=== PATIENT | male | born 1975 | race African-American/Black ===

== ENCOUNTER 2018-06-21 01:25 | Emergency (ER) | payer OTHER ==
[~2018-06-21] VITALS: Ht 188 cm; Wt 83.5 kg
[2018-06-21 02:22] VITALS: BP 141/73
[2018-06-21] MEDS ORDERED: RISP.5 PO (02:26)
[2018-06-21] MEDS ORDERED: RisperiDONE 0.5 MG TABLET PO ONE (04:00)
== END 2018-06-21 05:55 | disposition home or self-care (01) ==
LOC: EMS 01:25
DX: R45.89 Other symptoms and signs involving emotional state (principal); F17.210 Nicotine dependence, cigarettes, uncomplicated; Z91.013 Allergy to seafood; Z88.0 Allergy status to penicillin
CPT/HCPCS: 99285

== ENCOUNTER 2018-11-27 16:19 | Inpatient (IN) | payer MEDICAID ==
[~2018-11-27] VITALS: Ht 188 cm; Wt 80.7 kg
[~2018-11-27 16:19] MED LIST: RISP.5 PO
[2018-11-27 18:02] VITALS: BP 134/67
[2018-11-27] MEDS ORDERED: LORazepam 2 MG TABLET PO PRN (18:45)
[2018-11-27] MEDS ORDERED: ZOLPIDEM TARTRATE 10 MG TABLET PO PRN (18:45)
[2018-11-27] MEDS ORDERED: HALOPERIDOL 5 MG TABLET PO PRN (18:45)
[2018-11-27 19:15] VITALS: BP 122/71
[2018-11-27] MEDS ORDERED: ACETAMINOPHEN 325 MG TABLET PO PRN (22:15)
[2018-11-27] MEDS ORDERED: CloNIDine HCL 0.1 MG TABLET PO PRN (22:15)
[2018-11-27] MEDS ORDERED: DOCUSATE SODIUM 100 MG CAPSULE PO PRN (22:15)
[2018-11-27] MEDS ORDERED: NICOTINE 14 MG/24 HOUR PATCH TD PRN (22:15)
[2018-11-27] MEDS ORDERED: PETROLATUM,WHITE 71 GM JELLY TP PRN (22:15)
[2018-11-27] MEDS ORDERED: LOPERAMIDE HCL 2 MG CAPSULE PO PRN (22:15)
[2018-11-27] MEDS ORDERED: ONDANSETRON HCL 4 MG TABLET PO PRN (22:15)
[2018-11-27] MEDS ORDERED: ALBUTEROL SULFATE HFA 90 MCG/PUFF 8 GM INHALER IH PRN (22:15)
[2018-11-27] MEDS ORDERED: MAG HYDROX/AL HYDROX/SIMETH ES 30 ML SUSPENSION UDCUP PO PRN (22:15)
[2018-11-27] MEDS ORDERED: GuaiFENesin/D-METHORPHAN [SUGAR-FREE] 200-20MG/10 ML SYRUP UDCUP PO PRN (22:15)
[2018-11-27] MEDS ORDERED: MAGNESIUM HYDROXIDE SUSPENSION 30 ML UDCUP PO PRN (22:15)
[2018-11-27] MEDS ORDERED: IBUPROFEN 400 MG TABLET PO PRN (22:15)
[2018-11-28 06:29] VITALS: BP 122/79
[2018-11-28 07:54] LABS: BASOPHILS % (AUTO) 0.4 % (0.0-2.0); EOSINOPHILS % (AUTO) 1.3 % (1.0-6.0); HEMATOCRIT 45.8 % (41-53); HEMOGLOBIN 15.6 g/dL (13.5-17.5); LYMPHOCYTES # (AUTO) 2.3 K/uL (1.0-4.8); LYMPHOCYTES % (AUTO) 31.1 % (22.0-44.0); MEAN CORPUSCULAR HEMOGLOBIN 31.7 pg (26.0-34.0); MEAN CORPUSCULAR HGB CONC 34.1 G/dL (31.0-37.0); MEAN CORPUSCULAR VOLUME 93 fL (80-100); MONOCYTES # (AUTO) 0.5 K/uL (0.1-1.0); MONOCYTES % (AUTO) 6.5 % (2.0-9.0); NEUTROPHILS # (AUTO) 4.5 K/uL (1.8-7.7); NEUTROPHILS % (AUTO) 60.7 % (40.0-70.0); PLATELET COUNT (AUTO) 211 K/uL (150-450); RED BLOOD CELL COUNT(AUTO) 4.94 MIL/uL (4.50-5.90); RED CELL DISTRIBUTION WIDTH 13.2 % (11.5-14.5)
[2018-11-28 08:07] LABS: APPEARANCE,URINE CLOUDY (CLEAR); BILIRUBIN,URINE NEGATIVE (NEGATIVE); GLUCOSE, URINE (UA) NEGATIVE (NEGATIVE); KETONES,URINE 15 mg/dL (NEGATIVE); LEUKOCYTE ESTERASE ,URINE SMALL (NEGATIVE); NITRATE,URINE NEGATIVE (NEGATIVE); OCCULT BLOOD,URINE NEGATIVE (NEGATIVE); PH,URINE 7.5 (5.0-8.0); PROTEIN,URINE SEE CONFIRM (NEGATIVE)
[2018-11-28 08:08] VITALS: BP 121/77
[2018-11-28 08:18] LABS: SULFOSALICYLIC ACID,URINE 3+ (Negative)
[2018-11-28 08:20] LABS: BACTERIA,URINE Moderate /HPF (None Seen); RBC,URINE 0-2 /HPF (0-2); SQUAMOUS EPITHELIAL CELL,UR Moderate /LPF (None Seen)
[2018-11-28 08:38] LABS: HEMOGLOBIN A1C 6.3 % (4.5-6.2)
[2018-11-28 08:46] LABS: ALANINE AMINOTRANSFERASE 33 U/L (12-78); ALBUMIN 3.7 g/dL (3.4-5.0); ALKALINE PHOSPHATASE 99 U/L (46-116); ANION GAP 6 mmol/L (8-16); ASPARTATE AMINOTRANSFERASE 35 U/L (15-37); BILIRUBIN,TOTAL 0.9 mg/dL (0.1-1.0); CALCIUM, TOTAL 9.2 mg/dL (8.8-10.5); CARBON DIOXIDE 32 mmol/L (22-29); CHLORIDE 103 mmol/L (98-107); CHOLESTEROL 191 mg/dL (131-200); CREATININE 1.06 mg/dL (0.60-1.30); FREE T4 (FREE THYROXINE) 1.03 ng/dL (0.76-1.46); GLOMERULAR FILTR. RATE CALC > 60 mL/min (>60); GLUCOSE,RANDOM 82 mg/dL (70-110); HDL CHOLESTEROL 64 mg/dL (40-60); LDL CHOL (CALC.) 119 mg/dL (0-130); POTASSIUM 4.4 mmol/L (3.5-5.1); SODIUM SERUM 141 mmol/L (136-145); THYROID STIMULATING HORMONE 0.21 uIU/mL (0.36-3.74); TOTAL PROTEIN, SERUM 7.3 g/dL (6.4-8.2); TRIGLYCERIDES 39 mg/dL (15-150); UREA NITROGEN, BLOOD 20 mg/dL (7-18)
[2018-11-28 16:07] VITALS: BP 135/84
[2018-11-28] MEDS: CIPROFLOXACIN HCL 250 MG TABLET PO SCH (21:00)
[2018-11-29 06:35] VITALS: BP 126/68
[2018-11-29] MEDS: CIPROFLOXACIN HCL 250 MG TABLET PO SCH ×2 (08:57→20:23)
[2018-11-29] MEDS: BuPROPion HCL XL 150 MG ER TABLET PO SCH (08:57)
[2018-11-29 09:16] VITALS: BP 115/64
[2018-11-29 17:56] VITALS: BP 118/75
[2018-11-30 06:32] VITALS: BP 124/77
[2018-11-30 08:39] VITALS: BP 122/74
[2018-11-30] MEDS: CIPROFLOXACIN HCL 250 MG TABLET PO SCH (08:44)
[2018-11-30] MEDS: BuPROPion HCL XL 150 MG ER TABLET PO SCH (08:44)
[2018-11-30] MEDS ORDERED: CIP250 PO (15:14)
[2018-11-30] MEDS ORDERED: BUPR-93 PO (15:14)
== END 2018-11-30 18:37 | disposition home or self-care (01) | DRG 751 ==
LOC: B3A 18:41
PROVIDERS: ADMIT Psychiatry & Neurology Psychiatry; ATTEND Psychiatry & Neurology Psychiatry
DX: F33.2 Major depressive disorder, recurrent severe without psychotic features (principal); F20.9 Schizophrenia, unspecified; R45.851 Suicidal ideations; Z91.19 Patient's noncompliance with other medical treatment and regimen; B18.2 Chronic viral hepatitis C; F10.10 Alcohol abuse, uncomplicated; Y90.9 Presence of alcohol in blood, level not specified; F14.90 Cocaine use, unspecified, uncomplicated; F15.90 Other stimulant use, unspecified, uncomplicated; F17.200 Nicotine dependence, unspecified, uncomplicated; N18.9 Chronic kidney disease, unspecified; N39.0 Urinary tract infection, site not specified; Z91.5 Personal history of self-harm; Z88.0 Allergy status to penicillin; Z91.013 Allergy to seafood
CPT/HCPCS: 83036; 84439; 84443; 87086

== ENCOUNTER 2019-01-02 14:14 | Emergency (ER) | payer MEDICAID, OTHER ==
[~2019-01-02] VITALS: Ht 185.4 cm; Wt 84.1 kg
[~2019-01-02 14:14] MED LIST changes: +BUPR-93 PO; +CIP250 PO; -RISP.5 PO
[2019-01-02 15:39] LABS: GLUCOSE,POINT OF CARE 93 MG/DL (70-110)
[2019-01-02 18:24] LABS: AMPHET/METH SCREEN,URINE NEGATIVE (NEGATIVE); BARBITURATE SCREEN, URINE NEGATIVE (NEGATIVE); BENZODIAZEPINES SCREEN,URINE NEGATIVE (NEGATIVE); CANNABINOID SCREEN,URINE NEGATIVE (NEGATIVE); COCAINE SCREEN,URINE NEGATIVE (NEGATIVE); METHADONE SCREEN, URINE NEGATIVE (NEGATIVE); OPIATE SCREEN,URINE NEGATIVE (NEGATIVE); PHENCYCLIDINE SCREEN,URINE NEGATIVE (NEGATIVE)
[2019-01-02 19:08] VITALS: BP 127/77
== END 2019-01-02 19:21 | disposition home or self-care (01) ==
LOC: EMS 14:14
DX: F32.9 Major depressive disorder, single episode, unspecified (principal); F41.9 Anxiety disorder, unspecified; F17.210 Nicotine dependence, cigarettes, uncomplicated; Z87.898 Personal history of other specified conditions; Z88.0 Allergy status to penicillin; Z91.013 Allergy to seafood; Z79.899 Other long term (current) drug therapy

== ENCOUNTER 2019-01-12 00:33 | Emergency (ER) | payer OTHER ==
[~2019-01-12] VITALS: Ht 188 cm; Wt 84.1 kg
[2019-01-12] MEDS ORDERED: MAGNESIUM CITRATE 300 ML ORAL SOLUTION PO ONE (01:15)
[2019-01-12 01:37] LABS: BASOPHILS % (AUTO) 0.8 % (0.0-2.0); EOSINOPHILS % (AUTO) 1.4 % (1.0-6.0); HEMATOCRIT 38.7 % (41-53); HEMOGLOBIN 13.5 g/dL (13.5-17.5); LYMPHOCYTES # (AUTO) 2.8 K/uL (1.0-4.8); LYMPHOCYTES % (AUTO) 33.8 % (22.0-44.0); MEAN CORPUSCULAR HEMOGLOBIN 31.2 pg (26.0-34.0); MEAN CORPUSCULAR HGB CONC 34.8 G/dL (31.0-37.0); MEAN CORPUSCULAR VOLUME 90 fL (80-100); MONOCYTES # (AUTO) 0.5 K/uL (0.1-1.0); MONOCYTES % (AUTO) 6.4 % (2.0-9.0); NEUTROPHILS # (AUTO) 4.7 K/uL (1.8-7.7); NEUTROPHILS % (AUTO) 57.6 % (40.0-70.0); PLATELET COUNT (AUTO) 162 K/uL (150-450); RED BLOOD CELL COUNT(AUTO) 4.32 MIL/uL (4.50-5.90); RED CELL DISTRIBUTION WIDTH 13.4 % (11.5-14.5)
[2019-01-12 01:52] LABS: ANION GAP 6 mmol/L (8-16); CALCIUM, TOTAL 9.1 mg/dL (8.8-10.5); CARBON DIOXIDE 32 mmol/L (22-29); CHLORIDE 101 mmol/L (98-107); GLOMERULAR FILTR. RATE CALC > 60 mL/min (>60); GLUCOSE,RANDOM 104 mg/dL (70-110); POTASSIUM 3.4 mmol/L (3.5-5.1); SODIUM SERUM 139 mmol/L (136-145); UREA NITROGEN, BLOOD 21 mg/dL (7-18)
[2019-01-12 01:57] LABS: ALANINE AMINOTRANSFERASE 31 U/L (12-78); ALBUMIN 3.6 g/dL (3.4-5.0); ALKALINE PHOSPHATASE 87 U/L (46-116); ASPARTATE AMINOTRANSFERASE 43 U/L (15-37); BILIRUBIN,TOTAL 0.6 mg/dL (0.1-1.0); LIPASE 74 U/L (73-393); TOTAL PROTEIN, SERUM 7.3 g/dL (6.4-8.2)
[2019-01-12 02:10] VITALS: BP 135/81
== END 2019-01-12 02:30 | disposition home or self-care (01) ==
LOC: EMS 00:35
DX: K59.00 Constipation, unspecified (principal); R07.9 Chest pain, unspecified; F17.210 Nicotine dependence, cigarettes, uncomplicated; F15.90 Other stimulant use, unspecified, uncomplicated; Z88.0 Allergy status to penicillin; Z91.013 Allergy to seafood
CPT/HCPCS: 93005

== ENCOUNTER 2019-01-16 12:14 | Inpatient (IN) | payer MEDICAID, OTHER ==
[~2019-01-16] VITALS: Ht 188 cm; Wt 89.8 kg
[2019-01-16] MEDS ORDERED: HALOPERIDOL 5 MG TABLET PO PRN (15:15)
[2019-01-16] MEDS ORDERED: ZOLPIDEM TARTRATE 10 MG TABLET PO PRN (15:15)
[2019-01-16 16:43] VITALS: BP 136/79
[2019-01-16] MEDS ORDERED: GuaiFENesin/D-METHORPHAN [SUGAR-FREE] 200-20MG/10 ML SYRUP UDCUP PO PRN (18:15)
[2019-01-16] MEDS ORDERED: MAG HYDROX/AL HYDROX/SIMETH ES 30 ML SUSPENSION UDCUP PO PRN (18:15)
[2019-01-16] MEDS ORDERED: DOCUSATE SODIUM 100 MG CAPSULE PO PRN (18:15)
[2019-01-16] MEDS ORDERED: MAGNESIUM HYDROXIDE SUSPENSION 30 ML UDCUP PO PRN (18:15)
[2019-01-16] MEDS ORDERED: ACETAMINOPHEN 325 MG TABLET PO PRN (18:15)
[2019-01-16] MEDS ORDERED: ONDANSETRON HCL 4 MG TABLET PO PRN (18:15)
[2019-01-16] MEDS ORDERED: ALBUTEROL SULFATE HFA 90 MCG/PUFF 8 GM INHALER IH PRN (18:15)
[2019-01-16] MEDS ORDERED: LOPERAMIDE HCL 2 MG CAPSULE PO PRN (18:15)
[2019-01-16] MEDS ORDERED: IBUPROFEN 400 MG TABLET PO PRN (18:15)
[2019-01-16] MEDS ORDERED: CloNIDine HCL 0.1 MG TABLET PO PRN (18:15)
[2019-01-16] MEDS ORDERED: PETROLATUM,WHITE 71 GM JELLY TP PRN (18:15)
[2019-01-16] MEDS ORDERED: NICOTINE 14 MG/24 HOUR PATCH TD PRN (18:15)
[2019-01-17 00:33] VITALS: BP 118/72
[2019-01-17 08:14] VITALS: BP 105/67
[2019-01-17 08:33] LABS: BASOPHILS % (AUTO) 0.7 % (0.0-2.0); EOSINOPHILS % (AUTO) 2.1 % (1.0-6.0); HEMOGLOBIN 13.8 g/dL (13.5-17.5); LYMPHOCYTES % (AUTO) 48.3 % (22.0-44.0); MEAN CORPUSCULAR HEMOGLOBIN 31.7 pg (26.0-34.0); MEAN CORPUSCULAR HGB CONC 34.5 G/dL (31.0-37.0); MEAN CORPUSCULAR VOLUME 92 fL (80-100); MONOCYTES # (AUTO) 0.4 K/uL (0.1-1.0); MONOCYTES % (AUTO) 6.8 % (2.0-9.0); NEUTROPHILS # (AUTO) 2.6 K/uL (1.8-7.7); NEUTROPHILS % (AUTO) 42.1 % (40.0-70.0); PLATELET COUNT (AUTO) 178 K/uL (150-450); RED BLOOD CELL COUNT(AUTO) 4.35 MIL/uL (4.50-5.90); RED CELL DISTRIBUTION WIDTH 13.6 % (11.5-14.5)
[2019-01-17 08:46] LABS: HEMOGLOBIN A1C 5.9 % (4.5-6.2)
[2019-01-17 09:03] LABS: ALANINE AMINOTRANSFERASE 34 U/L (12-78); ALBUMIN 3.2 g/dL (3.4-5.0); ALKALINE PHOSPHATASE 80 U/L (46-116); ANION GAP 3 mmol/L (8-16); ASPARTATE AMINOTRANSFERASE 35 U/L (15-37); BILIRUBIN,TOTAL 0.4 mg/dL (0.1-1.0); CALCIUM, TOTAL 9.1 mg/dL (8.8-10.5); CARBON DIOXIDE 33 mmol/L (22-29); CHLORIDE 102 mmol/L (98-107); CHOLESTEROL 142 mg/dL (131-200); FREE T4 (FREE THYROXINE) 0.75 ng/dL (0.76-1.46); GLOMERULAR FILTR. RATE CALC > 60 mL/min (>60); GLUCOSE,RANDOM 85 mg/dL (70-110); HDL CHOLESTEROL 47 mg/dL (40-60); LDL CHOL (CALC.) 78 mg/dL (0-130); POTASSIUM 4.2 mmol/L (3.5-5.1); SODIUM SERUM 138 mmol/L (136-145); THYROID STIMULATING HORMONE 0.51 uIU/mL (0.36-3.74); TOTAL PROTEIN, SERUM 7.2 g/dL (6.4-8.2); TRIGLYCERIDES 84 mg/dL (15-150)
[2019-01-17 09:09] LABS: UREA NITROGEN, BLOOD 20 mg/dL (7-18)
[2019-01-17 16:16] VITALS: BP 119/73
[2019-01-18 00:34] VITALS: BP 112/68
[2019-01-18 08:25] VITALS: BP 116/65
[2019-01-18] MEDS: BuPROPion HCL XL 150 MG ER TABLET PO SCH (08:57)
[2019-01-18 16:57] VITALS: BP 120/57
[2019-01-19 01:03] VITALS: BP 121/72
[2019-01-19 08:32] VITALS: BP 117/82
[2019-01-19] MEDS: BuPROPion HCL XL 150 MG ER TABLET PO SCH (08:48)
[2019-01-19 16:27] VITALS: BP 110/70
[2019-01-20 04:31] VITALS: BP 115/76
[2019-01-20] MEDS: BuPROPion HCL XL 150 MG ER TABLET PO SCH (08:25)
[2019-01-20 08:27] VITALS: BP 117/85
[2019-01-20 16:02] VITALS: BP 113/67
[2019-01-21 00:47] VITALS: BP 110/68
[2019-01-21] MEDS: LORazepam 2 MG TABLET PO PRN ×2 (00:47→20:30)
[2019-01-21 08:13] VITALS: BP 115/75
[2019-01-21] MEDS: BuPROPion HCL XL 150 MG ER TABLET PO SCH (09:28)
[2019-01-21 16:11] VITALS: BP 119/75
[2019-01-21] MEDS ORDERED: BUPR-93 PO (20:18)
[2019-01-22 01:20] VITALS: BP 103/64
[2019-01-22 08:32] VITALS: BP 114/76
[2019-01-22] MEDS: BuPROPion HCL XL 150 MG ER TABLET PO SCH (09:24)
== END 2019-01-22 09:55 | disposition home or self-care (01) | DRG 751 ==
LOC: B2S 15:14
PROVIDERS: ADMIT Psychiatry & Neurology Psychiatry; ATTEND Psychiatry & Neurology Psychiatry
DX: F33.2 Major depressive disorder, recurrent severe without psychotic features (principal); R45.851 Suicidal ideations; F25.9 Schizoaffective disorder, unspecified; B18.2 Chronic viral hepatitis C; F17.200 Nicotine dependence, unspecified, uncomplicated; E03.9 Hypothyroidism, unspecified; F14.90 Cocaine use, unspecified, uncomplicated; F15.90 Other stimulant use, unspecified, uncomplicated; Z91.19 Patient's noncompliance with other medical treatment and regimen; Z88.0 Allergy status to penicillin; Z91.5 Personal history of self-harm
CPT/HCPCS: 83036; 84439; 84443

== ENCOUNTER 2019-05-01 18:25 | Emergency (ER) | payer MEDICAID, OTHER ==
[~2019-05-01] VITALS: Ht 188 cm; Wt 86.4 kg
[~2019-05-01 18:25] MED LIST changes: -CIP250 PO
[2019-05-01] MEDS ORDERED: ACETAMINOPHEN 500 MG TABLET PO ONE (19:30)
[2019-05-01 22:00] VITALS: BP 139/84
== END 2019-05-01 22:19 | disposition home or self-care (01) ==
LOC: EMS 18:26
DX: R76.11 Nonspecific reaction to tuberculin skin test without active tuberculosis (principal); F12.90 Cannabis use, unspecified, uncomplicated; F15.90 Other stimulant use, unspecified, uncomplicated; F17.210 Nicotine dependence, cigarettes, uncomplicated; Z88.0 Allergy status to penicillin; Z91.013 Allergy to seafood; Z91.018 Allergy to other foods
CPT/HCPCS: 99406

== ENCOUNTER 2019-05-17 16:27 | Inpatient (IN) | payer MEDICAID, OTHER ==
[~2019-05-17] VITALS: Ht 182.9 cm; Wt 85.3 kg
[2019-05-17] MEDS ORDERED: FLUO-191 PO (16:39)
[2019-05-17] MEDS ORDERED: HALOPERIDOL 5 MG TABLET PO PRN (16:45)
[2019-05-17] MEDS ORDERED: PETROLATUM,WHITE 28 GM JELLY TP PRN (17:30)
[2019-05-17] MEDS ORDERED: NICOTINE 14 MG/24 HOUR PATCH TD PRN (17:30)
[2019-05-17] MEDS ORDERED: IBUPROFEN 400 MG TABLET PO PRN (17:30)
[2019-05-17] MEDS ORDERED: DOCUSATE SODIUM 100 MG CAPSULE PO PRN (17:30)
[2019-05-17] MEDS ORDERED: ACETAMINOPHEN 325 MG TABLET PO PRN (17:30)
[2019-05-17] MEDS ORDERED: LOPERAMIDE HCL 2 MG CAPSULE PO PRN (17:30)
[2019-05-17] MEDS ORDERED: MAG HYDROX/AL HYDROX/SIMETH ES 30 ML SUSPENSION UDCUP PO PRN (17:30)
[2019-05-17 17:32] VITALS: BP 133/88
[2019-05-17 21:10] VITALS: BP 128/84
[2019-05-17] MEDS: ZOLPIDEM TARTRATE 10 MG TABLET PO PRN (22:13)
[2019-05-18 00:50] VITALS: BP 122/73
[2019-05-18 07:30] LABS: BASOPHILS % (AUTO) 0.5 % (0.0-2.0); EOSINOPHILS % (AUTO) 1.8 % (1.0-6.0); HEMATOCRIT 39.8 % (41-53); HEMOGLOBIN 13.5 g/dL (13.5-17.5); LYMPHOCYTES # (AUTO) 2.6 K/uL (1.0-4.8); LYMPHOCYTES % (AUTO) 28.9 % (22.0-44.0); MEAN CORPUSCULAR HEMOGLOBIN 31.1 pg (26.0-34.0); MEAN CORPUSCULAR HGB CONC 33.9 G/dL (31.0-37.0); MEAN CORPUSCULAR VOLUME 92 fL (80-100); MONOCYTES # (AUTO) 0.5 K/uL (0.1-1.0); MONOCYTES % (AUTO) 5.6 % (2.0-9.0); NEUTROPHILS # (AUTO) 5.7 K/uL (1.8-7.7); NEUTROPHILS % (AUTO) 63.2 % (40.0-70.0); PLATELET COUNT (AUTO) 255 K/uL (150-450); RED BLOOD CELL COUNT(AUTO) 4.34 MIL/uL (4.50-5.90); RED CELL DISTRIBUTION WIDTH 12.9 % (11.5-14.5)
[2019-05-18 07:38] LABS: HEMOGLOBIN A1C 6.3 % (4.5-6.2)
[2019-05-18 07:55] LABS: ALANINE AMINOTRANSFERASE 36 U/L (12-78); ALBUMIN 3.4 g/dL (3.4-5.0); ALKALINE PHOSPHATASE 94 U/L (46-116); ANION GAP 4 mmol/L (8-16); ASPARTATE AMINOTRANSFERASE 58 U/L (15-37); BILIRUBIN,TOTAL 0.3 mg/dL (0.1-1.0); CALCIUM, TOTAL 9.4 mg/dL (8.8-10.5); CARBON DIOXIDE 32 mmol/L (22-29); CHLORIDE 103 mmol/L (98-107); CHOL/HDL RATIO 3.1 (4.2-7.3); CHOLESTEROL 153 mg/dL (131-200); CREATININE 1.17 mg/dL (0.60-1.30); FREE T4 (FREE THYROXINE) 0.99 ng/dL (0.76-1.46); GLOMERULAR FILTR. RATE CALC > 60 mL/min (>60); GLUCOSE,RANDOM 75 mg/dL (70-110); HDL CHOLESTEROL 50 mg/dL (40-60); LDL CHOL (CALC.) 95 mg/dL (0-130); POTASSIUM 3.9 mmol/L (3.5-5.1); SODIUM SERUM 139 mmol/L (136-145); THYROID STIMULATING HORMONE 0.86 uIU/mL (0.36-3.74); TOTAL PROTEIN, SERUM 7.3 g/dL (6.4-8.2); TRIGLYCERIDES 38 mg/dL (15-150); UREA NITROGEN, BLOOD 14 mg/dL (7-18)
[2019-05-18] MEDS: FLUoxetine HCL 20 MG CAPSULE PO SCH (10:12)
[2019-05-18 16:21] VITALS: BP 115/65
[2019-05-18] MEDS: LORazepam 2 MG TABLET PO PRN (18:55)
[2019-05-18] MEDS: ZOLPIDEM TARTRATE 10 MG TABLET PO PRN (20:18)
[2019-05-18] MEDS: RisperiDONE 1 MG TABLET PO SCH (20:18)
[2019-05-19 00:48] VITALS: BP 120/69
[2019-05-19 08:32] VITALS: BP 120/90
[2019-05-19] MEDS: FLUoxetine HCL 20 MG CAPSULE PO SCH (08:49)
[2019-05-19 16:12] VITALS: BP 130/78
[2019-05-19] MEDS: RisperiDONE 1 MG TABLET PO SCH (21:14)
[2019-05-19] MEDS: ZOLPIDEM TARTRATE 10 MG TABLET PO PRN (21:14)
[2019-05-20 00:58] VITALS: BP 110/67
[2019-05-20 08:36] VITALS: BP 124/64
[2019-05-20] MEDS: FLUoxetine HCL 20 MG CAPSULE PO SCH (08:42)
[2019-05-20 16:00] VITALS: BP 133/76
[2019-05-20] MEDS: RisperiDONE 1 MG TABLET PO SCH (20:18)
[2019-05-20] MEDS: ZOLPIDEM TARTRATE 10 MG TABLET PO PRN (20:21)
[2019-05-21 01:01] VITALS: BP 101/53
[2019-05-21 08:09] VITALS: BP 110/69
[2019-05-21] MEDS: FLUoxetine HCL 20 MG CAPSULE PO SCH (08:09)
[2019-05-21] MEDS ORDERED: PETROLATUM,WHITE 28 GM JELLY TP PRN (12:45)
[2019-05-21] MEDS ORDERED: MAGNESIUM HYDROXIDE SUSPENSION 30 ML UDCUP PO PRN (12:45)
[2019-05-21] MEDS ORDERED: ONDANSETRON HCL 4 MG TABLET PO PRN (12:45)
[2019-05-21] MEDS ORDERED: CloNIDine HCL 0.1 MG TABLET PO PRN (12:45)
[2019-05-21] MEDS ORDERED: DOCUSATE SODIUM 100 MG CAPSULE PO PRN (12:45)
[2019-05-21] MEDS ORDERED: IBUPROFEN 400 MG TABLET PO PRN (12:45)
[2019-05-21] MEDS ORDERED: ACETAMINOPHEN 325 MG TABLET PO PRN (12:45)
[2019-05-21] MEDS ORDERED: ALBUTEROL SULFATE HFA 90 MCG/PUFF 8 GM INHALER IH PRN (12:45)
[2019-05-21] MEDS ORDERED: NICOTINE 14 MG/24 HOUR PATCH TD PRN (12:45)
[2019-05-21] MEDS ORDERED: GuaiFENesin/D-METHORPHAN [SUGAR-FREE] 200-20MG/10 ML SYRUP UDCUP PO PRN (12:45)
[2019-05-21] MEDS ORDERED: LOPERAMIDE HCL 2 MG CAPSULE PO PRN (12:45)
[2019-05-21] MEDS ORDERED: MAG HYDROX/AL HYDROX/SIMETH ES 30 ML SUSPENSION UDCUP PO PRN (12:45)
[2019-05-21 16:27] VITALS: BP 125/78
[2019-05-21] MEDS: LORazepam 2 MG TABLET PO PRN (18:45)
[2019-05-21] MEDS: RisperiDONE 1 MG TABLET PO SCH (20:43)
[2019-05-21] MEDS: ZOLPIDEM TARTRATE 10 MG TABLET PO PRN (20:44)
[2019-05-22 00:13] VITALS: BP 107/63
[2019-05-22] MEDS: FLUoxetine HCL 20 MG CAPSULE PO SCH (08:12)
[2019-05-22 08:38] VITALS: BP 115/62
[2019-05-22 16:22] VITALS: BP 122/66
[2019-05-22] MEDS: RisperiDONE 1 MG TABLET PO SCH (20:25)
[2019-05-22] MEDS: ZOLPIDEM TARTRATE 10 MG TABLET PO PRN (20:25)
[2019-05-23 00:48] VITALS: BP 122/61
[2019-05-23 08:14] VITALS: BP 128/70
[2019-05-23] MEDS: FLUoxetine HCL 20 MG CAPSULE PO SCH (08:26)
[2019-05-23 16:26] VITALS: BP 123/84
[2019-05-23] MEDS: LORazepam 2 MG TABLET PO PRN (17:28)
[2019-05-23] MEDS: RisperiDONE 1 MG TABLET PO SCH (20:24)
[2019-05-23] MEDS: ZOLPIDEM TARTRATE 10 MG TABLET PO PRN (21:04)
[2019-05-24 00:21] VITALS: BP 107/62
[2019-05-24 08:12] VITALS: BP 130/61
[2019-05-24] MEDS: FLUoxetine HCL 20 MG CAPSULE PO SCH (08:31)
[2019-05-24] MEDS: LORazepam 2 MG TABLET PO PRN (11:58)
[2019-05-24 16:07] VITALS: BP 113/75
[2019-05-24] MEDS: RisperiDONE 1 MG TABLET PO SCH (20:10)
[2019-05-24] MEDS: ZOLPIDEM TARTRATE 10 MG TABLET PO PRN (21:04)
[2019-05-25] MEDS: LORazepam 2 MG TABLET PO PRN (03:23)
[2019-05-25] MEDS ORDERED: RISP1 PO (07:59)
== END 2019-05-25 09:00 | disposition home or self-care (01) | DRG 750 ==
LOC: B2S 16:47
DX: F25.1 Schizoaffective disorder, depressive type (principal); F15.20 Other stimulant dependence, uncomplicated; R45.851 Suicidal ideations; E11.9 Type 2 diabetes mellitus without complications; B18.2 Chronic viral hepatitis C; F10.10 Alcohol abuse, uncomplicated; F17.200 Nicotine dependence, unspecified, uncomplicated; R76.11 Nonspecific reaction to tuberculin skin test without active tuberculosis; Z59.0 Homelessness; Z79.899 Other long term (current) drug therapy; Z91.5 Personal history of self-harm; Z71.41 Alcohol abuse counseling and surveillance of alcoholic; Z71.6 Tobacco abuse counseling; Z91.013 Allergy to seafood; Z91.018 Allergy to other foods
CPT/HCPCS: 83036; 84439; 84443

== ENCOUNTER 2019-10-21 19:32 | Inpatient (IN) | payer MEDICAID, OTHER ==
[~2019-10-21] VITALS: Ht 188 cm; Wt 86.2 kg
[~2019-10-21 19:32] MED LIST changes: -BUPR-93 PO; +FLUO-191 PO; +RISP1 PO
[2019-10-21 21:41] LABS: BASOPHILS % (AUTO) 0.6 % (0.0-2.0); EOSINOPHILS % (AUTO) 0.3 % (1.0-6.0); HEMATOCRIT 45.4 % (41-53); HEMOGLOBIN 15.5 g/dL (13.5-17.5); LYMPHOCYTES # (AUTO) 2.2 K/uL (1.0-4.8); LYMPHOCYTES % (AUTO) 19.3 % (22.0-44.0); MEAN CORPUSCULAR HEMOGLOBIN 31.7 pg (26.0-34.0); MEAN CORPUSCULAR HGB CONC 34.2 G/dL (31.0-37.0); MEAN CORPUSCULAR VOLUME 93 fL (80-100); MONOCYTES # (AUTO) 0.7 K/uL (0.1-1.0); MONOCYTES % (AUTO) 6.2 % (2.0-9.0); NEUTROPHILS # (AUTO) 8.3 K/uL (1.8-7.7); NEUTROPHILS % (AUTO) 73.6 % (40.0-70.0); PLATELET COUNT (AUTO) 226 K/uL (150-450); RED CELL DISTRIBUTION WIDTH 13.6 % (11.5-14.5)
[2019-10-21 21:51] LABS: ANION GAP 7 mmol/L (8-16); CALCIUM, TOTAL 9.7 mg/dL (8.8-10.5); CARBON DIOXIDE 32 mmol/L (22-29); CHLORIDE 99 mmol/L (98-107); CREATININE 1.32 mg/dL (0.60-1.30); GLOMERULAR FILTR. RATE CALC > 60 mL/min (>60); GLUCOSE,RANDOM 100 mg/dL (70-110); POTASSIUM 3.9 mmol/L (3.5-5.1); SODIUM SERUM 138 mmol/L (136-145); UREA NITROGEN, BLOOD 11 mg/dL (7-18)
[2019-10-21 21:58] LABS: ALANINE AMINOTRANSFERASE 21 U/L (12-78); ALBUMIN 4.2 g/dL (3.4-5.0); ALKALINE PHOSPHATASE 119 U/L (46-116); ASPARTATE AMINOTRANSFERASE 23 U/L (15-37); BILIRUBIN,TOTAL 0.5 mg/dL (0.1-1.0); TOTAL PROTEIN, SERUM 8.8 g/dL (6.4-8.2)
[2019-10-22 00:43] LABS: CREATINE KINASE, TOTAL ONLY 206 U/L (39-308)
[2019-10-22 01:28] LABS: AMPHET/METH SCREEN,URINE POSITIVE (NEGATIVE); BARBITURATE SCREEN, URINE NEGATIVE (NEGATIVE); BENZODIAZEPINES SCREEN,URINE NEGATIVE (NEGATIVE); CANNABINOID SCREEN,URINE NEGATIVE (NEGATIVE); COCAINE SCREEN,URINE NEGATIVE (NEGATIVE); METHADONE SCREEN, URINE NEGATIVE (NEGATIVE); OPIATE SCREEN,URINE NEGATIVE (NEGATIVE)
[2019-10-22 01:29] LABS: PHENCYCLIDINE SCREEN,URINE NEGATIVE (NEGATIVE)
[2019-10-22] MEDS ORDERED: LORazepam 2 MG TABLET PO PRN (03:15)
[2019-10-22] MEDS ORDERED: DiphenhydrAMINE HCL 50 MG/ML VIAL IM ONE (03:15)
[2019-10-22] MEDS ORDERED: HALOPERIDOL LACTATE 5 MG/ML VIAL IM ONE (03:15)
[2019-10-22] MEDS ORDERED: LORazepam 2 MG/ML VIAL IM ONE (03:15)
[2019-10-22] MEDS ORDERED: HALOPERIDOL 5 MG TABLET PO PRN (03:15)
[2019-10-22] MEDS ORDERED: BACITRACIN 0.9 GM PACKET OINTMENT TP ONE (05:16)
[2019-10-22 09:30] VITALS: BP 100/61
[2019-10-22] MEDS ORDERED: PNEUMOCOCCAL VACCINE POLYVALENT 0.5 ML VIAL [PPSV23] IM ONE (11:15)
[2019-10-22] MEDS ORDERED: ONDANSETRON HCL 4 MG TABLET PO PRN (12:45)
[2019-10-22] MEDS ORDERED: ALBUTEROL SULFATE HFA 90 MCG/PUFF 8 GM INHALER IH PRN (12:45)
[2019-10-22] MEDS ORDERED: PETROLATUM,WHITE 28 GM JELLY TP PRN (12:45)
[2019-10-22] MEDS ORDERED: BACITRACIN 28.4 GM OINTMENT TP PRN (12:45)
[2019-10-22] MEDS ORDERED: CloNIDine HCL 0.1 MG TABLET PO PRN (12:45)
[2019-10-22] MEDS ORDERED: MAGNESIUM HYDROXIDE SUSPENSION 30 ML UDCUP PO PRN (12:45)
[2019-10-22] MEDS ORDERED: MAG HYDROX/AL HYDROX/SIMETH ES 30 ML SUSPENSION UDCUP PO PRN (12:45)
[2019-10-22] MEDS ORDERED: LOPERAMIDE HCL 2 MG CAPSULE PO PRN (12:45)
[2019-10-22] MEDS ORDERED: BENZOCAINE/MENTHOL LOZENGE MM PRN (12:45)
[2019-10-22] MEDS ORDERED: ACETAMINOPHEN 325 MG TABLET PO PRN (12:45)
[2019-10-22 17:12] VITALS: BP 111/66
[2019-10-22] MEDS: BACITRACIN 28.4 GM OINTMENT TP SCH (20:14)
[2019-10-22] MEDS: RisperiDONE 2 MG TABLET PO SCH (21:00)
[2019-10-22] MEDS: DIVALPROEX SODIUM 500 MG DR TABLET PO SCH (21:00)
[2019-10-23 07:03] VITALS: BP 112/58
[2019-10-23 07:52] LABS: BASOPHILS % (AUTO) 0.3 % (0.0-2.0); EOSINOPHILS % (AUTO) 0.6 % (1.0-6.0); HEMOGLOBIN 14.4 g/dL (13.5-17.5); LYMPHOCYTES # (AUTO) 1.6 K/uL (1.0-4.8); LYMPHOCYTES % (AUTO) 18.2 % (22.0-44.0); MEAN CORPUSCULAR HEMOGLOBIN 31.5 pg (26.0-34.0); MEAN CORPUSCULAR HGB CONC 34.2 G/dL (31.0-37.0); MEAN CORPUSCULAR VOLUME 92 fL (80-100); MONOCYTES # (AUTO) 0.6 K/uL (0.1-1.0); MONOCYTES % (AUTO) 6.7 % (2.0-9.0); NEUTROPHILS # (AUTO) 6.7 K/uL (1.8-7.7); NEUTROPHILS % (AUTO) 74.2 % (40.0-70.0); PLATELET COUNT (AUTO) 190 K/uL (150-450); RED BLOOD CELL COUNT(AUTO) 4.56 MIL/uL (4.50-5.90); RED CELL DISTRIBUTION WIDTH 13.6 % (11.5-14.5)
[2019-10-23 08:00] VITALS: BP 113/71
[2019-10-23 08:08] LABS: CALCIUM, TOTAL 8.8 mg/dL (8.8-10.5); CHOL/HDL RATIO 3.4 (4.2-7.3); CREATININE 1.73 mg/dL (0.60-1.30); POTASSIUM 3.5 mmol/L (3.5-5.1)
[2019-10-23 08:26] LABS: HEMOGLOBIN A1C 6.1 % (4.5-6.2)
[2019-10-23] MEDS: DOCUSATE SODIUM 100 MG CAPSULE PO SCH (08:37)
[2019-10-23] MEDS: RisperiDONE 2 MG TABLET PO SCH ×2 (08:37→16:07)
[2019-10-23] MEDS: DIVALPROEX SODIUM 500 MG DR TABLET PO SCH ×2 (08:38→16:07)
[2019-10-23] MEDS: OMEPRAZOLE 20 MG CAPSULE PO SCH (08:38)
[2019-10-23] MEDS: BACITRACIN 28.4 GM OINTMENT TP SCH ×2 (08:42→16:07)
[2019-10-23 16:17] VITALS: BP 123/60
[2019-10-23] MEDS: IBUPROFEN 600 MG TABLET PO PRN (18:38)
[2019-10-23] MEDS: ZOLPIDEM TARTRATE 10 MG TABLET PO PRN (20:27)
[2019-10-24 07:04] VITALS: BP 118/75
[2019-10-24 08:20] VITALS: BP 101/66
[2019-10-24] MEDS: OMEPRAZOLE 20 MG CAPSULE PO SCH (08:31)
[2019-10-24] MEDS: DOCUSATE SODIUM 100 MG CAPSULE PO SCH (08:31)
[2019-10-24] MEDS: DIVALPROEX SODIUM 500 MG DR TABLET PO SCH ×2 (08:31→16:33)
[2019-10-24] MEDS: RisperiDONE 2 MG TABLET PO SCH ×2 (08:31→16:33)
[2019-10-24] MEDS: BACITRACIN 28.4 GM OINTMENT TP SCH ×2 (08:32→16:33)
[2019-10-24] MEDS: IBUPROFEN 600 MG TABLET PO PRN (14:34)
[2019-10-24 14:43] VITALS: BP 111/69
[2019-10-24 16:13] VITALS: BP 112/76
[2019-10-24] MEDS: ZOLPIDEM TARTRATE 10 MG TABLET PO PRN (20:22)
[2019-10-25 05:17] VITALS: BP 119/73
[2019-10-25] MEDS: OMEPRAZOLE 20 MG CAPSULE PO SCH (08:55)
[2019-10-25] MEDS: DIVALPROEX SODIUM 500 MG DR TABLET PO SCH ×2 (08:56→16:02)
[2019-10-25] MEDS: RisperiDONE 2 MG TABLET PO SCH ×2 (08:56→16:02)
[2019-10-25] MEDS: DOCUSATE SODIUM 100 MG CAPSULE PO SCH (08:57)
[2019-10-25] MEDS: BACITRACIN 28.4 GM OINTMENT TP SCH ×2 (08:59→16:20)
[2019-10-25 16:00] VITALS: BP 108/62
[2019-10-25] MEDS: ZOLPIDEM TARTRATE 10 MG TABLET PO PRN (20:20)
[2019-10-26 05:35] VITALS: BP 128/84
[2019-10-26 08:00] VITALS: BP 116/48
[2019-10-26] MEDS: OMEPRAZOLE 20 MG CAPSULE PO SCH (09:21)
[2019-10-26] MEDS: RisperiDONE 2 MG TABLET PO SCH (09:21)
[2019-10-26] MEDS: DIVALPROEX SODIUM 500 MG DR TABLET PO SCH (09:21)
[2019-10-26] MEDS: DOCUSATE SODIUM 100 MG CAPSULE PO SCH (09:21)
[2019-10-26] MEDS ORDERED: RISP2 PO (10:14)
[2019-10-26] MEDS ORDERED: DIVA-78 PO (10:14)
[2019-11-07] MEDS ORDERED: DIVA-78 PO (13:45)
[2019-11-07] MEDS ORDERED: RISP2 PO (13:46)
== END 2019-10-26 13:18 | disposition home or self-care (01) | DRG 750 ==
LOC: EMS 19:32 → B3A 10-22 08:18
PROVIDERS: ADMIT Psychiatry & Neurology Psychiatry; ATTEND Psychiatry & Neurology Psychiatry
DX: F25.1 Schizoaffective disorder, depressive type (principal); R45.851 Suicidal ideations; F15.10 Other stimulant abuse, uncomplicated; F17.210 Nicotine dependence, cigarettes, uncomplicated; F43.10 Post-traumatic stress disorder, unspecified; G47.00 Insomnia, unspecified; K59.00 Constipation, unspecified; Z79.899 Other long term (current) drug therapy
CPT/HCPCS: 83036; 93005; 99291; G0480; J1200; J1630; J2060

== ENCOUNTER 2019-11-08 15:46 | Inpatient (IN) | payer MEDICAID ==
[~2019-11-08] VITALS: Ht 188 cm; Wt 90.0 kg
[~2019-11-08 15:46] MED LIST changes: +DIVA-78 PO; -FLUO-191 PO; -RISP1 PO; +RISP2 PO
[2019-11-08] MEDS ORDERED: HALOPERIDOL 5 MG TABLET PO PRN (17:30)
[2019-11-08] MEDS ORDERED: ZOLPIDEM TARTRATE 10 MG TABLET PO PRN (17:30)
[2019-11-08] MEDS ORDERED: INFLUENZA VIRUS VACCINE QVS 2019-20 (3YR+)/PF 60 MCG/0.5 ML SYRINGE IM ONE (18:15)
[2019-11-08 19:12] VITALS: BP 137/86
[2019-11-08] MEDS ORDERED: PNEUMOCOCCAL VACCINE POLYVALENT 0.5 ML VIAL [PPSV23] IM ONE (20:15)
[2019-11-08] MEDS: LORazepam 2 MG TABLET PO PRN (20:26)
[2019-11-09] MEDS: DIVALPROEX SODIUM 500 MG DR TABLET PO SCH ×2 (09:24→16:50)
[2019-11-09] MEDS: RisperiDONE 2 MG TABLET PO SCH ×2 (09:24→16:50)
[2019-11-09] MEDS ORDERED: NICOTINE 14 MG/24 HOUR PATCH TD PRN (09:45)
[2019-11-09] MEDS ORDERED: MAG HYDROX/AL HYDROX/SIMETH ES 30 ML SUSPENSION UDCUP PO PRN (09:45)
[2019-11-09] MEDS ORDERED: LOPERAMIDE HCL 2 MG CAPSULE PO PRN (09:45)
[2019-11-09] MEDS ORDERED: DOCUSATE SODIUM 100 MG CAPSULE PO PRN (09:45)
[2019-11-09] MEDS ORDERED: IBUPROFEN 400 MG TABLET PO PRN (09:45)
[2019-11-09] MEDS ORDERED: GuaiFENesin/D-METHORPHAN [SUGAR-FREE] 200-20MG/10 ML SYRUP UDCUP PO PRN (09:45)
[2019-11-09] MEDS ORDERED: MAGNESIUM HYDROXIDE SUSPENSION 30 ML UDCUP PO PRN (09:45)
[2019-11-09] MEDS ORDERED: ONDANSETRON HCL 4 MG TABLET PO PRN (09:45)
[2019-11-09] MEDS ORDERED: PETROLATUM,WHITE 28 GM JELLY TP PRN (09:45)
[2019-11-09] MEDS ORDERED: ALBUTEROL SULFATE HFA 90 MCG/PUFF 8 GM INHALER IH PRN (09:45)
[2019-11-09] MEDS ORDERED: CloNIDine HCL 0.1 MG TABLET PO PRN (09:45)
[2019-11-09] MEDS ORDERED: ACETAMINOPHEN 325 MG TABLET PO PRN (09:45)
[2019-11-09 17:12] VITALS: BP 105/70
[2019-11-10 06:33] VITALS: BP 111/62
[2019-11-10 07:36] LABS: BASOPHILS % (AUTO) 0.5 % (0.0-2.0); EOSINOPHILS % (AUTO) 1.2 % (1.0-6.0); HEMATOCRIT 42.6 % (41-53); HEMOGLOBIN 14.5 g/dL (13.5-17.5); LYMPHOCYTES # (AUTO) 1.9 K/uL (1.0-4.8); LYMPHOCYTES % (AUTO) 23.5 % (22.0-44.0); MEAN CORPUSCULAR HEMOGLOBIN 31.7 pg (26.0-34.0); MEAN CORPUSCULAR HGB CONC 34.1 G/dL (31.0-37.0); MEAN CORPUSCULAR VOLUME 93 fL (80-100); MONOCYTES # (AUTO) 0.6 K/uL (0.1-1.0); NEUTROPHILS # (AUTO) 5.6 K/uL (1.8-7.7); NEUTROPHILS % (AUTO) 67.8 % (40.0-70.0); PLATELET COUNT (AUTO) 240 K/uL (150-450); RED BLOOD CELL COUNT(AUTO) 4.59 MIL/uL (4.50-5.90); RED CELL DISTRIBUTION WIDTH 13.8 % (11.5-14.5)
[2019-11-10 08:00] VITALS: BP 122/66
[2019-11-10 08:09] LABS: ALANINE AMINOTRANSFERASE 17 U/L (12-78); ALBUMIN 3.6 g/dL (3.4-5.0); ALKALINE PHOSPHATASE 101 U/L (46-116); ANION GAP 5 mmol/L (8-16); ASPARTATE AMINOTRANSFERASE 17 U/L (15-37); BILIRUBIN,TOTAL 0.4 mg/dL (0.1-1.0); CALCIUM, TOTAL 9.4 mg/dL (8.8-10.5); CARBON DIOXIDE 31 mmol/L (22-29); CHLORIDE 101 mmol/L (98-107); CHOLESTEROL 169 mg/dL (131-200); CREATININE 1.22 mg/dL (0.60-1.30); GLOMERULAR FILTR. RATE CALC > 60 mL/min (>60); GLUCOSE,RANDOM 87 mg/dL (70-110); HDL CHOLESTEROL 57 mg/dL (40-60); LDL CHOL (CALC.) 101 mg/dL (0-130); POTASSIUM 4.5 mmol/L (3.5-5.1); SODIUM SERUM 137 mmol/L (136-145); THYROID STIMULATING HORMONE 0.25 uIU/mL (0.36-3.74); TRIGLYCERIDES 54 mg/dL (15-150); UREA NITROGEN, BLOOD 18 mg/dL (7-18)
[2019-11-10] MEDS: DIVALPROEX SODIUM 500 MG DR TABLET PO SCH ×2 (08:15→16:54)
[2019-11-10] MEDS: RisperiDONE 2 MG TABLET PO SCH ×2 (08:15→16:54)
[2019-11-10 16:07] VITALS: BP 106/67
[2019-11-10] MEDS: LORazepam 2 MG TABLET PO PRN (20:27)
[2019-11-11 05:32] VITALS: BP 105/62
[2019-11-11 08:16] VITALS: BP 136/65
[2019-11-11] MEDS: DIVALPROEX SODIUM 500 MG DR TABLET PO SCH (08:33)
[2019-11-11] MEDS: LORazepam 2 MG TABLET PO PRN (08:33)
[2019-11-11] MEDS: RisperiDONE 2 MG TABLET PO SCH (08:33)
[2019-11-11] MEDS ORDERED: DIVA-78 PO (13:42)
[2019-11-11] MEDS ORDERED: NALT50TA PO (13:42)
[2019-11-11] MEDS ORDERED: RISP2 PO (13:42)
== END 2019-11-11 15:16 | disposition home or self-care (01) | DRG 751 ==
LOC: B3A 18:32
PROVIDERS: ADMIT Psychiatry & Neurology Psychiatry; ATTEND Psychiatry & Neurology Psychiatry
DX: F32.3 Major depressive disorder, single episode, severe with psychotic features (principal); R45.851 Suicidal ideations; Z91.14 Patient's other noncompliance with medication regimen; B18.2 Chronic viral hepatitis C; G47.00 Insomnia, unspecified; K59.00 Constipation, unspecified; F19.10 Other psychoactive substance abuse, uncomplicated; Z59.0 Homelessness; Z91.5 Personal history of self-harm
CPT/HCPCS: 84439; 84443; 90686

== ENCOUNTER 2019-12-29 12:01 | Inpatient (IN) | payer MEDICAID, OTHER ==
[~2019-12-29] VITALS: Ht 185.4 cm; Wt 92.0 kg
[~2019-12-29 12:01] MED LIST changes: -RISP2 PO; +RISP3 PO
[2019-12-29 12:30] LABS: BASOPHILS % (AUTO) 0.3 % (0.0-2.0); EOSINOPHILS % (AUTO) 0.2 % (1.0-6.0); HEMATOCRIT 45.5 % (41-53); HEMOGLOBIN 15.5 g/dL (13.5-17.5); LYMPHOCYTES # (AUTO) 1.6 K/uL (1.0-4.8); MEAN CORPUSCULAR HEMOGLOBIN 31.2 pg (26.0-34.0); MEAN CORPUSCULAR HGB CONC 34.1 G/dL (31.0-37.0); MEAN CORPUSCULAR VOLUME 91 fL (80-100); MONOCYTES # (AUTO) 0.8 K/uL (0.1-1.0); MONOCYTES % (AUTO) 5.9 % (2.0-9.0); NEUTROPHILS # (AUTO) 10.7 K/uL (1.8-7.7); NEUTROPHILS % (AUTO) 81.6 % (40.0-70.0); PLATELET COUNT (AUTO) 226 K/uL (150-450); RED BLOOD CELL COUNT(AUTO) 4.99 MIL/uL (4.50-5.90); RED CELL DISTRIBUTION WIDTH 13.8 % (11.5-14.5)
[2019-12-29 12:45] LABS: ANION GAP 9 mmol/L (8-16); CALCIUM, TOTAL 9.4 mg/dL (8.8-10.5); CARBON DIOXIDE 28 mmol/L (22-29); CHLORIDE 100 mmol/L (98-107); CREATININE 1.05 mg/dL (0.60-1.30); GLOMERULAR FILTR. RATE CALC > 60 mL/min (>60); GLUCOSE,RANDOM 102 mg/dL (70-110); POTASSIUM 3.7 mmol/L (3.5-5.1); SODIUM SERUM 137 mmol/L (136-145); UREA NITROGEN, BLOOD 13 mg/dL (7-18)
[2019-12-29 12:51] LABS: ALANINE AMINOTRANSFERASE 26 U/L (12-78); ALBUMIN 4.7 g/dL (3.4-5.0); ALKALINE PHOSPHATASE 116 U/L (46-116); ASPARTATE AMINOTRANSFERASE 29 U/L (15-37); BILIRUBIN,TOTAL 0.7 mg/dL (0.1-1.0)
[2019-12-29] MEDS ORDERED: LORazepam 2 MG TABLET PO PRN (14:00)
[2019-12-29] MEDS ORDERED: HALOPERIDOL 5 MG TABLET PO PRN (14:00)
[2019-12-29] MEDS ORDERED: ZOLPIDEM TARTRATE 10 MG TABLET PO PRN (14:00)
[2019-12-29] MEDS ORDERED: HALOPERIDOL LACTATE 5 MG/ML VIAL ONE (16:59)
[2019-12-29] MEDS ORDERED: DiphenhydrAMINE HCL 50 MG/ML VIAL ONE (16:59)
[2019-12-29] MEDS ORDERED: LORazepam 2 MG/ML VIAL ONE (16:59)
[2019-12-29] MEDS ORDERED: DiphenhydrAMINE HCL 50 MG/ML VIAL IM ONE (17:00)
[2019-12-29] MEDS ORDERED: HALOPERIDOL LACTATE 5 MG/ML VIAL IM ONE (17:00)
[2019-12-29] MEDS ORDERED: LORazepam 2 MG/ML VIAL IM ONE (17:00)
[2019-12-30 00:57] VITALS: BP 134/67
[2019-12-30] MEDS ORDERED: INFLUENZA VIRUS VACCINE QVS 2019-20 (3YR+)/PF 60 MCG/0.5 ML SYRINGE IM ONE (02:15)
[2019-12-30] MEDS ORDERED: PNEUMOCOCCAL VACCINE POLYVALENT 0.5 ML VIAL [PPSV23] IM ONE (02:15)
[2019-12-30] MEDS: DIVALPROEX SODIUM 500 MG DR TABLET PO SCH ×2 (09:40→20:07)
[2019-12-30] MEDS: RisperiDONE 3 MG TABLET PO SCH ×2 (09:40→20:07)
[2019-12-30] MEDS ORDERED: IBUPROFEN 400 MG TABLET PO PRN (13:15)
[2019-12-30] MEDS ORDERED: PETROLATUM,WHITE 28 GM JELLY TP PRN (13:15)
[2019-12-30] MEDS ORDERED: MAG HYDROX/AL HYDROX/SIMETH ES 30 ML SUSPENSION UDCUP PO PRN (13:15)
[2019-12-30] MEDS ORDERED: MAGNESIUM HYDROXIDE SUSPENSION 30 ML UDCUP PO PRN (13:15)
[2019-12-30] MEDS ORDERED: ONDANSETRON HCL 4 MG TABLET PO PRN (13:15)
[2019-12-30] MEDS ORDERED: GuaiFENesin/D-METHORPHAN [SUGAR-FREE] 200-20MG/10 ML SYRUP UDCUP PO PRN (13:15)
[2019-12-30] MEDS ORDERED: LOPERAMIDE HCL 2 MG CAPSULE PO PRN (13:15)
[2019-12-30] MEDS ORDERED: ACETAMINOPHEN 325 MG TABLET PO PRN (13:15)
[2019-12-30] MEDS ORDERED: DOCUSATE SODIUM 100 MG CAPSULE PO PRN (13:15)
[2019-12-30] MEDS ORDERED: CloNIDine HCL 0.1 MG TABLET PO PRN (13:15)
[2019-12-30] MEDS ORDERED: ALBUTEROL SULFATE HFA 90 MCG/PUFF 8 GM INHALER IH PRN (13:15)
[2019-12-30] MEDS ORDERED: NICOTINE 14 MG/24 HOUR PATCH TD PRN (13:15)
[2019-12-30 16:03] VITALS: BP 124/84
[2019-12-31] MEDS: RisperiDONE 3 MG TABLET PO SCH ×2 (08:27→19:57)
[2019-12-31] MEDS: DIVALPROEX SODIUM 500 MG DR TABLET PO SCH ×2 (08:27→19:57)
[2019-12-31 13:24] LABS: ALANINE AMINOTRANSFERASE 33 U/L (12-78); ALBUMIN 3.6 g/dL (3.4-5.0); ALKALINE PHOSPHATASE 100 U/L (46-116); ANION GAP 9 mmol/L (8-16); ASPARTATE AMINOTRANSFERASE 65 U/L (15-37); BILIRUBIN,TOTAL 0.6 mg/dL (0.1-1.0); CALCIUM, TOTAL 8.8 mg/dL (8.8-10.5); CARBON DIOXIDE 29 mmol/L (22-29); CHLORIDE 100 mmol/L (98-107); CHOL/HDL RATIO 3.7 (4.2-7.3); CHOLESTEROL 161 mg/dL (131-200); CREATININE 1.16 mg/dL (0.60-1.30); GLOMERULAR FILTR. RATE CALC > 60 mL/min (>60); GLUCOSE,RANDOM 158 mg/dL (70-110); HDL CHOLESTEROL 44 mg/dL (40-60); LDL CHOL (CALC.) 89 mg/dL (0-130); POTASSIUM 3.9 mmol/L (3.5-5.1); SODIUM SERUM 138 mmol/L (136-145); TOTAL PROTEIN, SERUM 6.9 g/dL (6.4-8.2); TRIGLYCERIDES 138 mg/dL (15-150); UREA NITROGEN, BLOOD 21 mg/dL (7-18)
[2019-12-31 17:09] VITALS: BP 114/71
[2020-01-01 08:24] VITALS: BP 102/57
[2020-01-01] MEDS: RisperiDONE 3 MG TABLET PO SCH ×2 (08:43→20:17)
[2020-01-01] MEDS: DIVALPROEX SODIUM 500 MG DR TABLET PO SCH ×2 (08:43→20:17)
[2020-01-01 16:33] VITALS: BP 117/65
[2020-01-02] MEDS: RisperiDONE 3 MG TABLET PO SCH (09:09)
[2020-01-02] MEDS: DIVALPROEX SODIUM 500 MG DR TABLET PO SCH (09:09)
[2020-01-02] MEDS ORDERED: RISP3 PO (10:32)
[2020-01-02] MEDS ORDERED: DIVA-78 PO (10:32)
[2020-01-02 10:39] VITALS: BP 156/76
== END 2020-01-02 14:09 | disposition home or self-care (01) | DRG 885 ==
LOC: EMS 12:03 → B2S 14:27 → UNDOADMIN 14:27 → B2S 20:05 → 3EC 23:18
DX: F25.1 Schizoaffective disorder, depressive type (principal); B18.2 Chronic viral hepatitis C; R45.851 Suicidal ideations; D72.829 Elevated white blood cell count, unspecified; F10.10 Alcohol abuse, uncomplicated; Y90.9 Presence of alcohol in blood, level not specified; F15.10 Other stimulant abuse, uncomplicated; F19.10 Other psychoactive substance abuse, uncomplicated; Z79.899 Other long term (current) drug therapy; Z59.0 Homelessness; Z91.5 Personal history of self-harm; Z91.013 Allergy to seafood; Z88.8 Allergy status to other drugs, medicaments and biological substances; Z88.0 Allergy status to penicillin; Z28.21 Immunization not carried out because of patient refusal
CPT/HCPCS: 74018; 83036; 99291; G0480; J1200; J1630; J2060

== ENCOUNTER 2020-02-02 00:46 | Inpatient (IN) | payer MEDICAID, OTHER ==
[~2020-02-02] VITALS: Ht 188 cm; Wt 82.8 kg
[2020-02-02] MEDS ORDERED: antibiotic PO (01:03)
[2020-02-02] MEDS ORDERED: LORazepam 2 MG TABLET PO ONE (01:30)
[2020-02-02 01:51] LABS: BASOPHILS % (AUTO) 0.5 % (0.0-2.0); EOSINOPHILS % (AUTO) 0.1 % (1.0-6.0); HEMATOCRIT 44.6 % (41-53); HEMOGLOBIN 14.9 g/dL (13.5-17.5); LYMPHOCYTES # (AUTO) 1.8 K/uL (1.0-4.8); LYMPHOCYTES % (AUTO) 11.2 % (22.0-44.0); MEAN CORPUSCULAR HEMOGLOBIN 30.3 pg (26.0-34.0); MEAN CORPUSCULAR HGB CONC 33.4 G/dL (31.0-37.0); MEAN CORPUSCULAR VOLUME 91 fL (80-100); MONOCYTES # (AUTO) 1.4 K/uL (0.1-1.0); MONOCYTES % (AUTO) 8.3 % (2.0-9.0); NEUTROPHILS % (AUTO) 79.9 % (40.0-70.0); PLATELET COUNT (AUTO) 248 K/uL (150-450); RED BLOOD CELL COUNT(AUTO) 4.91 MIL/uL (4.50-5.90); RED CELL DISTRIBUTION WIDTH 13.6 % (11.5-14.5)
[2020-02-02 01:59] LABS: ANION GAP 10 mmol/L (8-16); CALCIUM, TOTAL 9.8 mg/dL (8.8-10.5); CARBON DIOXIDE 29 mmol/L (22-29); CHLORIDE 100 mmol/L (98-107); CREATININE 2.38 mg/dL (0.60-1.30); GLOMERULAR FILTR. RATE CALC 36 mL/min (>60); GLUCOSE,RANDOM 121 mg/dL (70-110); POTASSIUM 3.4 mmol/L (3.5-5.1); SODIUM SERUM 139 mmol/L (136-145); UREA NITROGEN, BLOOD 22 mg/dL (7-18)
[2020-02-02 02:05] LABS: ALANINE AMINOTRANSFERASE 33 U/L (12-78); ALBUMIN 4.5 g/dL (3.4-5.0); ALKALINE PHOSPHATASE 111 U/L (46-116); ASPARTATE AMINOTRANSFERASE 30 U/L (15-37); BILIRUBIN,TOTAL 0.5 mg/dL (0.1-1.0); TOTAL PROTEIN, SERUM 9.1 g/dL (6.4-8.2)
[2020-02-02] MEDS ORDERED: RisperiDONE 1 MG TABLET PO ONE (02:45)
[2020-02-02] MEDS ORDERED: SODIUM CHLORIDE 0.9% 1,000 ML IV ONE (02:45)
[2020-02-02 03:16] LABS: CREATINE KINASE, TOTAL ONLY 334 U/L (39-308)
[2020-02-02 04:51] LABS: CALCIUM, TOTAL 9.5 mg/dL (8.8-10.5); CREATININE 2.32 mg/dL (0.60-1.30)
[2020-02-02 04:56] LABS: BILIRUBIN,TOTAL 0.5 mg/dL (0.1-1.0); TOTAL PROTEIN, SERUM 8.5 g/dL (6.4-8.2)
[2020-02-02] MEDS ORDERED: ZOLPIDEM TARTRATE 10 MG TABLET PO PRN (05:30)
[2020-02-02] MEDS ORDERED: HALOPERIDOL 5 MG TABLET PO PRN (05:30)
[2020-02-02] MEDS ORDERED: PNEUMOCOCCAL VACCINE POLYVALENT 0.5 ML VIAL [PPSV23] IM ONE (11:00)
[2020-02-02] MEDS ORDERED: INFLUENZA VIRUS VACCINE QVS 2019-20 (3YR+)/PF 60 MCG/0.5 ML SYRINGE IM ONE (11:00)
[2020-02-02] MEDS ORDERED: MAG HYDROX/AL HYDROX/SIMETH 30 ML SUSP UDCUP PO PRN (12:30)
[2020-02-02] MEDS ORDERED: ACETAMINOPHEN 325 MG TABLET PO PRN (12:30)
[2020-02-02] MEDS ORDERED: MAGNESIUM HYDROXIDE SUSPENSION 30 ML UDCUP PO PRN (12:30)
[2020-02-02] MEDS: CEPHALEXIN MONOHYDRATE 500 MG CAPSULE PO SCH ×3 (15:59→21:20)
[2020-02-02 16:02] VITALS: BP 122/74
[2020-02-02] MEDS: RisperiDONE 3 MG TABLET PO SCH (17:58)
[2020-02-03 05:39] VITALS: BP 100/60
[2020-02-03 08:00] LABS: CHOL/HDL RATIO 2.6 (4.2-7.3)
[2020-02-03] MEDS: BuPROPion HCL XL 150 MG ER TABLET PO SCH (08:06)
[2020-02-03] MEDS: RisperiDONE 3 MG TABLET PO SCH ×2 (08:06→16:43)
[2020-02-03] MEDS: CEPHALEXIN MONOHYDRATE 500 MG CAPSULE PO SCH ×4 (08:06→20:51)
[2020-02-03 08:11] VITALS: BP 113/73
[2020-02-03 16:00] VITALS: BP 116/84
[2020-02-03] MEDS: BACITRACIN 28.4 GM OINTMENT TP SCH (16:43)
[2020-02-03] MEDS: LORazepam 2 MG TABLET PO PRN (20:51)
[2020-02-04 05:10] VITALS: BP 117/82
[2020-02-04 08:20] VITALS: BP 121/63
[2020-02-04] MEDS: BACITRACIN 28.4 GM OINTMENT TP SCH ×2 (08:23→16:58)
[2020-02-04] MEDS: CEPHALEXIN MONOHYDRATE 500 MG CAPSULE PO SCH ×4 (08:23→20:26)
[2020-02-04] MEDS: BuPROPion HCL XL 150 MG ER TABLET PO SCH (08:23)
[2020-02-04] MEDS: RisperiDONE 3 MG TABLET PO SCH ×2 (08:26→16:55)
[2020-02-04 16:00] VITALS: BP 116/78
[2020-02-04] MEDS: LORazepam 2 MG TABLET PO PRN (16:55)
[2020-02-05 03:41] VITALS: BP 124/68
[2020-02-05] MEDS: BuPROPion HCL XL 150 MG ER TABLET PO SCH (08:27)
[2020-02-05] MEDS: CEPHALEXIN MONOHYDRATE 500 MG CAPSULE PO SCH ×4 (08:27→21:00)
[2020-02-05] MEDS: RisperiDONE 3 MG TABLET PO SCH ×2 (08:27→16:43)
[2020-02-05 09:58] VITALS: BP 113/72
[2020-02-05] MEDS: BACITRACIN 28.4 GM OINTMENT TP SCH ×2 (11:38→17:24)
[2020-02-05 16:00] VITALS: BP 120/74
[2020-02-05] MEDS: LORazepam 2 MG TABLET PO PRN ×2 (16:43→23:31)
[2020-02-06 06:38] VITALS: BP 110/65
[2020-02-06 08:02] VITALS: BP 112/63
[2020-02-06] MEDS: BuPROPion HCL XL 150 MG ER TABLET PO SCH (08:26)
[2020-02-06] MEDS: MULTIVITAMINS WITH MINERALS, THERAPEUTIC TABLET PO SCH (08:26)
[2020-02-06] MEDS: CEPHALEXIN MONOHYDRATE 500 MG CAPSULE PO SCH ×4 (08:26→20:51)
[2020-02-06] MEDS: CLINDAMYCIN HCL 300 MG CAPSULE PO SCH ×2 (08:26→16:15)
[2020-02-06] MEDS: RisperiDONE 3 MG TABLET PO SCH ×2 (08:27→16:16)
[2020-02-06] MEDS: BACITRACIN 28.4 GM OINTMENT TP SCH ×2 (08:27→17:04)
[2020-02-06 08:42] LABS: MAGNESIUM 1.8 mg/dL (1.80-2.40); PHOSPHORUS 4.3 mg/dL (2.5-4.9)
[2020-02-06 16:16] VITALS: BP 123/64
[2020-02-06] MEDS: LORazepam 2 MG TABLET PO PRN (16:20)
[2020-02-07 05:52] VITALS: BP 124/85
[2020-02-07] MEDS: CEPHALEXIN MONOHYDRATE 500 MG CAPSULE PO SCH ×4 (08:45→20:39)
[2020-02-07] MEDS: MULTIVITAMINS WITH MINERALS, THERAPEUTIC TABLET PO SCH (08:45)
[2020-02-07] MEDS: CLINDAMYCIN HCL 300 MG CAPSULE PO SCH ×2 (08:45→16:52)
[2020-02-07] MEDS: RisperiDONE 3 MG TABLET PO SCH ×2 (08:45→16:50)
[2020-02-07] MEDS: BuPROPion HCL XL 150 MG ER TABLET PO SCH (08:45)
[2020-02-07] MEDS: BACITRACIN 28.4 GM OINTMENT TP SCH ×2 (08:46→17:40)
[2020-02-07 12:37] VITALS: BP 125/58
[2020-02-07 16:03] VITALS: BP 131/73
[2020-02-07] MEDS: LORazepam 2 MG TABLET PO PRN (16:50)
[2020-02-08 05:10] VITALS: BP 116/70
[2020-02-08] MEDS: CLINDAMYCIN HCL 300 MG CAPSULE PO SCH ×2 (08:09→18:25)
[2020-02-08] MEDS: MULTIVITAMINS WITH MINERALS, THERAPEUTIC TABLET PO SCH (08:10)
[2020-02-08] MEDS: BuPROPion HCL XL 150 MG ER TABLET PO SCH (08:10)
[2020-02-08] MEDS: CEPHALEXIN MONOHYDRATE 500 MG CAPSULE PO SCH ×4 (08:10→20:41)
[2020-02-08] MEDS: RisperiDONE 3 MG TABLET PO SCH ×2 (08:10→18:25)
[2020-02-08 08:28] VITALS: BP 121/54
[2020-02-08] MEDS: BACITRACIN 28.4 GM OINTMENT TP SCH ×2 (09:58→18:26)
[2020-02-08 16:05] VITALS: BP 121/69
[2020-02-08] MEDS: LORazepam 2 MG TABLET PO PRN (19:05)
[2020-02-08] MEDS ORDERED: RISP3 PO (20:52)
[2020-02-08] MEDS ORDERED: BUPR-47 PO (20:52)
[2020-02-08] MEDS ORDERED: NALT50TA PO (20:52)
[2020-02-09 07:16] VITALS: BP 116/73
[2020-02-09] MEDS ORDERED: CEPH-582 PO (08:41)
[2020-02-09] MEDS ORDERED: CLIN300C3 PO (08:41)
[2020-02-09] MEDS ORDERED: NALTREXONE HCL 50 MG TABLET PO SCH (09:00)
[2020-02-09] MEDS: BACITRACIN 28.4 GM OINTMENT TP SCH (09:00)
[2020-02-09] MEDS: BuPROPion HCL XL 150 MG ER TABLET PO SCH (09:09)
[2020-02-09] MEDS: CEPHALEXIN MONOHYDRATE 500 MG CAPSULE PO SCH (09:09)
[2020-02-09] MEDS: MULTIVITAMINS WITH MINERALS, THERAPEUTIC TABLET PO SCH (09:09)
[2020-02-09] MEDS: RisperiDONE 3 MG TABLET PO SCH (09:09)
[2020-02-09] MEDS: CLINDAMYCIN HCL 300 MG CAPSULE PO SCH (09:11)
== END 2020-02-09 12:00 | disposition home or self-care (01) | DRG 750 ==
LOC: EMS 00:48 → B3A 05:22
PROVIDERS: ADMIT Psychiatry & Neurology Psychiatry; ATTEND Psychiatry & Neurology Psychiatry
DX: F25.0 Schizoaffective disorder, bipolar type (principal); N17.9 Acute kidney failure, unspecified; M62.82 Rhabdomyolysis; Z59.0 Homelessness; R45.851 Suicidal ideations; Z91.19 Patient's noncompliance with other medical treatment and regimen; D72.829 Elevated white blood cell count, unspecified; F15.90 Other stimulant use, unspecified, uncomplicated; F43.10 Post-traumatic stress disorder, unspecified; I12.9 Hypertensive chronic kidney disease with stage 1 through stage 4 chronic kidney disease, or unspecified chronic kidney disease; N18.9 Chronic kidney disease, unspecified; Z88.0 Allergy status to penicillin; Z91.013 Allergy to seafood; Z91.018 Allergy to other foods; F12.90 Cannabis use, unspecified, uncomplicated; F17.210 Nicotine dependence, cigarettes, uncomplicated; F41.9 Anxiety disorder, unspecified; Z79.899 Other long term (current) drug therapy; E87.6 Hypokalemia
CPT/HCPCS: 83735; 84100; 99291; G0480; J7030

== ENCOUNTER 2020-02-05 18:53 | Emergency (ER) | payer MEDICAID, OTHER ==
[~2020-02-05] VITALS: Ht 190.5 cm; Wt 88.6 kg
[~2020-02-05 18:53] MED LIST changes: +antibiotic PO
[2020-02-05] MEDS ORDERED: CLINDAMYCIN HCL 150 MG CAPSULE PO ONE (21:00)
[2020-02-05 21:45] VITALS: BP 135/79
== END 2020-02-05 22:00 | disposition home or self-care (01) ==
LOC: EMS 18:53
DX: G89.18 Other acute postprocedural pain (principal); M79.645 Pain in left finger(s); F20.9 Schizophrenia, unspecified; F41.9 Anxiety disorder, unspecified; F32.9 Major depressive disorder, single episode, unspecified; F12.90 Cannabis use, unspecified, uncomplicated; F15.90 Other stimulant use, unspecified, uncomplicated; F17.210 Nicotine dependence, cigarettes, uncomplicated; Z98.890 Other specified postprocedural states; Z91.013 Allergy to seafood; Z88.0 Allergy status to penicillin; Z88.8 Allergy status to other drugs, medicaments and biological substances; Z79.899 Other long term (current) drug therapy
CPT/HCPCS: 99406

== ENCOUNTER 2020-02-08 16:00 | Emergency (ER) | payer OTHER ==
[~2020-02-08] VITALS: Ht 188 cm; Wt 88.6 kg
[2020-02-08] MEDS ORDERED: LIDOCAINE 1% 10 ML VIAL INJ ONE (16:30)
[2020-02-08] MEDS ORDERED: BACITRACIN 0.9 GM PACKET OINTMENT TP ONE (17:00)
[2020-02-08 17:59] VITALS: BP 122/70
[2020-02-08] MEDS ORDERED: NALT50TA PO (20:52)
[2020-02-08] MEDS ORDERED: BUPR-47 PO (20:52)
[2020-02-08] MEDS ORDERED: RISP3 PO (20:52)
[2020-02-09] MEDS ORDERED: CEPH-582 PO (08:41)
[2020-02-09] MEDS ORDERED: CLIN300C3 PO (08:41)
== END 2020-02-08 18:00 | disposition home or self-care (01) ==
LOC: EMS 16:00
DX: Z48.01 Encounter for change or removal of surgical wound dressing (principal); F17.210 Nicotine dependence, cigarettes, uncomplicated; F12.90 Cannabis use, unspecified, uncomplicated; F15.90 Other stimulant use, unspecified, uncomplicated; F41.9 Anxiety disorder, unspecified; F32.9 Major depressive disorder, single episode, unspecified
CPT/HCPCS: 99283; 99406; J3490

== ENCOUNTER 2020-02-16 18:53 | Inpatient (IN) | payer MEDICAID, OTHER ==
[~2020-02-16] VITALS: Ht 185.4 cm; Wt 88.6 kg
[~2020-02-16 18:53] MED LIST changes: +BUPR-47 PO; +CEPH-582 PO; +CLIN300C3 PO; -DIVA-78 PO; +NALT50TA PO; -antibiotic PO
[2020-02-16] MEDS ORDERED: LORazepam 2 MG/ML VIAL IM ONE (19:00)
[2020-02-16] MEDS ORDERED: DiphenhydrAMINE HCL 50 MG/ML VIAL IM ONE (19:00)
[2020-02-16] MEDS ORDERED: SODIUM CHLORIDE 0.9% 2,000 ML IV ONE (19:00)
[2020-02-16] MEDS ORDERED: HALOPERIDOL LACTATE 5 MG/ML VIAL IM ONE (19:00)
[2020-02-16] MEDS ORDERED: BACITRACIN 0.9 GM PACKET OINTMENT TP ONE (20:45)
[2020-02-16] MEDS ORDERED: HYDROGEN PEROXIDE 118 ML SOLUTION TP ONE (20:45)
[2020-02-16 22:11] LABS: BASOPHILS % (AUTO) 0.1 % (0.0-2.0); EOSINOPHILS % (AUTO) 0.1 % (1.0-6.0); HEMATOCRIT 39.5 % (41-53); HEMOGLOBIN 13.4 g/dL (13.5-17.5); LYMPHOCYTES # (AUTO) 1.2 K/uL (1.0-4.8); LYMPHOCYTES % (AUTO) 6.4 % (22.0-44.0); MEAN CORPUSCULAR HEMOGLOBIN 30.1 pg (26.0-34.0); MEAN CORPUSCULAR HGB CONC 33.8 G/dL (31.0-37.0); MEAN CORPUSCULAR VOLUME 89 fL (80-100); MONOCYTES # (AUTO) 0.9 K/uL (0.1-1.0); MONOCYTES % (AUTO) 4.6 % (2.0-9.0); NEUTROPHILS # (AUTO) 16.7 K/uL (1.8-7.7); PLATELET COUNT (AUTO) 223 K/uL (150-450); RED BLOOD CELL COUNT(AUTO) 4.44 MIL/uL (4.50-5.90); RED CELL DISTRIBUTION WIDTH 13.5 % (11.5-14.5)
[2020-02-16 22:13] LABS: NEUTROPHILS % (AUTO) 88.8 % (40.0-70.0)
[2020-02-16 22:21] LABS: ANION GAP 9 mmol/L (8-16); CALCIUM, TOTAL 10.2 mg/dL (8.8-10.5); CARBON DIOXIDE 28 mmol/L (22-29); CHLORIDE 100 mmol/L (98-107); CREATININE 1.79 mg/dL (0.60-1.30); GLOMERULAR FILTR. RATE CALC 50 mL/min (>60); GLUCOSE,RANDOM 71 mg/dL (70-110); POTASSIUM 3.5 mmol/L (3.5-5.1); SODIUM SERUM 137 mmol/L (136-145); UREA NITROGEN, BLOOD 19 mg/dL (7-18)
[2020-02-16 22:35] LABS: PLATELET MORPHOLOGY COMMENT GIANT PLTS PRESENT
[2020-02-16 22:46] LABS: LACTIC ACID 2.4 mmol/L (0.4-2.0)
[2020-02-16 22:52] LABS: ALANINE AMINOTRANSFERASE 30 U/L (12-78); ALBUMIN 4.7 g/dL (3.4-5.0); ALKALINE PHOSPHATASE 98 U/L (46-116); ASPARTATE AMINOTRANSFERASE 49 U/L (15-37); BILIRUBIN,TOTAL 0.6 mg/dL (0.1-1.0); LIPASE 72 U/L (73-393); TOTAL PROTEIN, SERUM 8.4 g/dL (6.4-8.2)
[2020-02-16 23:05] LABS: CREATINE KINASE, TOTAL ONLY 1433 U/L (39-308)
[2020-02-16] MEDS ORDERED: HALOPERIDOL 5 MG TABLET PO PRN (23:15)
[2020-02-17 00:27] LABS: BASOPHILS % (AUTO) 0.5 % (0.0-2.0); EOSINOPHILS % (AUTO) 0 % (1.0-6.0); HEMATOCRIT 38.3 % (41-53); HEMOGLOBIN 13.2 g/dL (13.5-17.5); LYMPHOCYTES % (AUTO) 13.4 % (22.0-44.0); MEAN CORPUSCULAR HGB CONC 34.6 G/dL (31.0-37.0); MEAN CORPUSCULAR VOLUME 90 fL (80-100); MONOCYTES % (AUTO) 6.6 % (2.0-9.0); NEUTROPHILS # (AUTO) 11.7 K/uL (1.8-7.7); NEUTROPHILS % (AUTO) 79.5 % (40.0-70.0); PLATELET COUNT (AUTO) 204 K/uL (150-450); RED BLOOD CELL COUNT(AUTO) 4.27 MIL/uL (4.50-5.90); RED CELL DISTRIBUTION WIDTH 13.4 % (11.5-14.5)
[2020-02-17 00:34] LABS: ANION GAP 14 mmol/L (8-16); CARBON DIOXIDE 22 mmol/L (22-29); CHLORIDE 105 mmol/L (98-107); CREATININE 1.46 mg/dL (0.60-1.30); GLOMERULAR FILTR. RATE CALC > 60 mL/min (>60); GLUCOSE,RANDOM 81 mg/dL (70-110); POTASSIUM 3.8 mmol/L (3.5-5.1); SODIUM SERUM 141 mmol/L (136-145); UREA NITROGEN, BLOOD 18 mg/dL (7-18)
[2020-02-17 00:39] LABS: ALANINE AMINOTRANSFERASE 31 U/L (12-78); ALKALINE PHOSPHATASE 91 U/L (46-116); ASPARTATE AMINOTRANSFERASE 63 U/L (15-37); BILIRUBIN,TOTAL 0.6 mg/dL (0.1-1.0); TOTAL PROTEIN, SERUM 7.4 g/dL (6.4-8.2)
[2020-02-17 01:36] VITALS: BP 105/58
[2020-02-17] MEDS ORDERED: BACITRACIN 28.4 GM OINTMENT TP PRN (06:00)
[2020-02-17 08:34] VITALS: BP 111/62
[2020-02-17 09:06] LABS: CHOL/HDL RATIO 2.8 (4.2-7.3)
[2020-02-17] MEDS ORDERED: ACETAMINOPHEN 325 MG TABLET PO PRN (16:00)
[2020-02-17] MEDS ORDERED: PROMETHAZINE HCL 25 MG TABLET PO PRN (16:00)
[2020-02-17] MEDS ORDERED: GuaiFENesin/D-METHORPHAN [SUGAR-FREE] 200-20MG/10 ML SYRUP UDCUP PO PRN (16:00)
[2020-02-17] MEDS ORDERED: PALIPERIDONE PALMITATE 234 MG/1.5 ML SYRINGE IM ONE (16:00)
[2020-02-17] MEDS ORDERED: HydrOXYzine PAMOATE 50 MG CAPSULE PO PRN (16:00)
[2020-02-17] MEDS ORDERED: LOPERAMIDE HCL 2 MG CAPSULE PO PRN (16:00)
[2020-02-17] MEDS ORDERED: PALIPERIDONE 3 MG ER TABLET PO PRN (16:00)
[2020-02-17] MEDS ORDERED: MAGNESIUM HYDROXIDE SUSPENSION 30 ML UDCUP PO PRN (16:00)
[2020-02-17] MEDS ORDERED: MAG HYDROX/AL HYDROX/SIMETH ES 30 ML SUSPENSION UDCUP PO PRN (16:00)
[2020-02-17] MEDS ORDERED: TUBERCULIN, PURIFIED PROTEIN DERIVATIVE 5 TU/0.1 ML SYRINGE ID ONE (16:00)
[2020-02-17 17:04] VITALS: BP 118/66
[2020-02-17] MEDS: THIAMINE HCL 100 MG TABLET PO SCH (17:50)
[2020-02-17] MEDS: PALIPERIDONE 3 MG ER TABLET PO SCH (22:10)
[2020-02-18 03:34] VITALS: BP 115/68
[2020-02-18 08:40] LABS: CHOL/HDL RATIO 2.9 (4.2-7.3); FREE T4 (FREE THYROXINE) 1.08 ng/dL (0.76-1.46); THYROID STIMULATING HORMONE 0.26 uIU/mL (0.36-3.74)
[2020-02-18 08:48] VITALS: BP 137/66
[2020-02-18] MEDS: LEVOFLOXACIN 500 MG TABLET PO SCH (09:47)
[2020-02-18] MEDS: NALTREXONE HCL 50 MG TABLET PO SCH (09:47)
[2020-02-18] MEDS: FOLIC ACID 1 MG TABLET PO SCH (09:47)
[2020-02-18] MEDS: THIAMINE HCL 100 MG TABLET PO SCH ×2 (09:48→17:03)
[2020-02-18] MEDS: MULTIVITAMINS WITH MINERALS, THERAPEUTIC TABLET PO SCH (09:48)
[2020-02-18 16:13] VITALS: BP 119/65
[2020-02-18] MEDS: LORazepam 2 MG TABLET PO PRN (17:03)
[2020-02-18] MEDS: PALIPERIDONE 3 MG ER TABLET PO SCH (20:58)
[2020-02-19 05:54] VITALS: BP 127/74
[2020-02-19 08:40] VITALS: BP 126/57
[2020-02-19] MEDS: NALTREXONE HCL 50 MG TABLET PO SCH (09:18)
[2020-02-19] MEDS: FOLIC ACID 1 MG TABLET PO SCH (09:18)
[2020-02-19] MEDS: MULTIVITAMINS WITH MINERALS, THERAPEUTIC TABLET PO SCH (09:18)
[2020-02-19] MEDS: THIAMINE HCL 100 MG TABLET PO SCH ×2 (09:18→16:47)
[2020-02-19] MEDS: LORazepam 2 MG TABLET PO PRN (16:47)
[2020-02-19 17:17] VITALS: BP 142/91
[2020-02-19] MEDS: PALIPERIDONE 3 MG ER TABLET PO SCH (20:21)
[2020-02-20 05:09] VITALS: BP 113/61
[2020-02-20] MEDS: NALTREXONE HCL 50 MG TABLET PO SCH (08:57)
[2020-02-20] MEDS: LEVOFLOXACIN 500 MG TABLET PO SCH (08:57)
[2020-02-20] MEDS: MULTIVITAMINS WITH MINERALS, THERAPEUTIC TABLET PO SCH (08:57)
[2020-02-20] MEDS: THIAMINE HCL 100 MG TABLET PO SCH ×2 (08:57→16:48)
[2020-02-20] MEDS: FOLIC ACID 1 MG TABLET PO SCH (08:57)
[2020-02-20 09:12] VITALS: BP 130/92
[2020-02-20 16:13] VITALS: BP 123/83
[2020-02-20] MEDS: LORazepam 2 MG TABLET PO PRN (16:48)
[2020-02-20] MEDS: PALIPERIDONE 3 MG ER TABLET PO SCH (20:52)
[2020-02-21 01:51] VITALS: BP 133/75
[2020-02-21 08:10] VITALS: BP 136/81
[2020-02-21] MEDS: MULTIVITAMINS WITH MINERALS, THERAPEUTIC TABLET PO SCH (08:42)
[2020-02-21] MEDS: NALTREXONE HCL 50 MG TABLET PO SCH (08:42)
[2020-02-21] MEDS: THIAMINE HCL 100 MG TABLET PO SCH ×2 (08:42→16:31)
[2020-02-21] MEDS: FOLIC ACID 1 MG TABLET PO SCH (08:42)
[2020-02-21] MEDS ORDERED: PALIPERIDONE PALMITATE 156 MG/ML SYRINGE IM ONE (09:00)
[2020-02-21 16:11] VITALS: BP 119/76
[2020-02-21] MEDS: LORazepam 2 MG TABLET PO PRN (16:31)
[2020-02-21] MEDS: PALIPERIDONE 3 MG ER TABLET PO SCH (21:10)
[2020-02-22 06:08] VITALS: BP 122/80
[2020-02-22 07:41] LABS: BASOPHILS % (AUTO) 0.6 % (0.0-2.0); EOSINOPHILS % (AUTO) 2.1 % (1.0-6.0); HEMATOCRIT 40.5 % (41-53); HEMOGLOBIN 13.7 g/dL (13.5-17.5); LYMPHOCYTES # (AUTO) 2.1 K/uL (1.0-4.8); LYMPHOCYTES % (AUTO) 36.2 % (22.0-44.0); MEAN CORPUSCULAR HEMOGLOBIN 30.6 pg (26.0-34.0); MEAN CORPUSCULAR HGB CONC 33.9 G/dL (31.0-37.0); MEAN CORPUSCULAR VOLUME 90 fL (80-100); MONOCYTES # (AUTO) 0.4 K/uL (0.1-1.0); MONOCYTES % (AUTO) 6.8 % (2.0-9.0); NEUTROPHILS # (AUTO) 3.2 K/uL (1.8-7.7); NEUTROPHILS % (AUTO) 54.3 % (40.0-70.0); PLATELET COUNT (AUTO) 208 K/uL (150-450); RED BLOOD CELL COUNT(AUTO) 4.48 MIL/uL (4.50-5.90); RED CELL DISTRIBUTION WIDTH 13.2 % (11.5-14.5)
[2020-02-22 08:19] VITALS: BP 115/59
[2020-02-22] MEDS: MULTIVITAMINS WITH MINERALS, THERAPEUTIC TABLET PO SCH (08:56)
[2020-02-22] MEDS: NALTREXONE HCL 50 MG TABLET PO SCH (08:56)
[2020-02-22] MEDS: LEVOFLOXACIN 500 MG TABLET PO SCH (08:56)
[2020-02-22] MEDS: THIAMINE HCL 100 MG TABLET PO SCH ×2 (08:56→16:06)
[2020-02-22] MEDS: FOLIC ACID 1 MG TABLET PO SCH (08:56)
[2020-02-22] MEDS: GABAPENTIN 100 MG CAPSULE PO SCH ×2 (16:06→20:43)
[2020-02-22] MEDS: LORazepam 2 MG TABLET PO PRN ×2 (16:07→20:43)
[2020-02-22 16:25] VITALS: BP 110/65
[2020-02-22] MEDS: PALIPERIDONE 3 MG ER TABLET PO SCH (20:43)
[2020-02-23] MEDS: NALTREXONE HCL 50 MG TABLET PO SCH (08:44)
[2020-02-23] MEDS: FOLIC ACID 1 MG TABLET PO SCH (08:44)
[2020-02-23] MEDS: GABAPENTIN 100 MG CAPSULE PO SCH ×3 (08:44→20:57)
[2020-02-23] MEDS: FLUoxetine HCL 20 MG CAPSULE PO SCH (08:44)
[2020-02-23] MEDS: MULTIVITAMINS WITH MINERALS, THERAPEUTIC TABLET PO SCH (08:44)
[2020-02-23] MEDS: THIAMINE HCL 100 MG TABLET PO SCH ×2 (08:44→16:30)
[2020-02-23 16:00] VITALS: BP 121/67
[2020-02-23] MEDS: LORazepam 2 MG TABLET PO PRN ×2 (16:30→20:57)
[2020-02-23] MEDS: ZOLPIDEM TARTRATE 10 MG TABLET PO PRN (20:57)
[2020-02-24 06:45] VITALS: BP 118/70
[2020-02-24] MEDS: MULTIVITAMINS WITH MINERALS, THERAPEUTIC TABLET PO SCH (09:36)
[2020-02-24] MEDS: FOLIC ACID 1 MG TABLET PO SCH (09:36)
[2020-02-24] MEDS: THIAMINE HCL 100 MG TABLET PO SCH ×2 (09:36→16:36)
[2020-02-24] MEDS: GABAPENTIN 100 MG CAPSULE PO SCH ×4 (09:36→20:40)
[2020-02-24] MEDS: FLUoxetine HCL 20 MG CAPSULE PO SCH (09:36)
[2020-02-24] MEDS: NALTREXONE HCL 50 MG TABLET PO SCH (09:36)
[2020-02-24] MEDS: LEVOFLOXACIN 500 MG TABLET PO SCH (09:36)
[2020-02-24 16:08] VITALS: BP 118/69
[2020-02-24] MEDS: LORazepam 2 MG TABLET PO PRN (16:36)
[2020-02-24] MEDS: ZOLPIDEM TARTRATE 10 MG TABLET PO PRN (20:40)
[2020-02-25 06:33] VITALS: BP 101/60
[2020-02-25 08:40] VITALS: BP 112/72
[2020-02-25] MEDS: MULTIVITAMINS WITH MINERALS, THERAPEUTIC TABLET PO SCH (09:20)
[2020-02-25] MEDS: THIAMINE HCL 100 MG TABLET PO SCH ×2 (09:20→17:30)
[2020-02-25] MEDS: GABAPENTIN 100 MG CAPSULE PO SCH ×4 (09:20→21:09)
[2020-02-25] MEDS: FOLIC ACID 1 MG TABLET PO SCH (09:21)
[2020-02-25] MEDS: FLUoxetine HCL 20 MG CAPSULE PO SCH (09:21)
[2020-02-25 16:14] VITALS: BP 116/66
[2020-02-25] MEDS: NALTREXONE HCL 50 MG TABLET PO SCH (17:31)
[2020-02-25] MEDS: LORazepam 2 MG TABLET PO PRN (18:21)
[2020-02-26 08:28] VITALS: BP 116/63
[2020-02-26] MEDS ORDERED: FLUoxetine HCL 20 MG CAPSULE PO SCH (09:00)
[2020-02-26] MEDS: THIAMINE HCL 100 MG TABLET PO SCH (09:24)
[2020-02-26] MEDS: NALTREXONE HCL 50 MG TABLET PO SCH (09:25)
[2020-02-26] MEDS: FOLIC ACID 1 MG TABLET PO SCH (09:25)
[2020-02-26] MEDS: GABAPENTIN 100 MG CAPSULE PO SCH ×2 (09:25→13:34)
[2020-02-26] MEDS: LEVOFLOXACIN 500 MG TABLET PO SCH (09:25)
[2020-02-26] MEDS: MULTIVITAMINS WITH MINERALS, THERAPEUTIC TABLET PO SCH (09:25)
[2020-02-26] MEDS ORDERED: NALT50TA PO (13:35)
[2020-02-26] MEDS ORDERED: FLUO-191 PO (13:35)
[2020-02-26] MEDS ORDERED: GABA-529 PO (13:35)
[2020-02-26] MEDS ORDERED: PALI117D IM (13:35)
== END 2020-02-26 15:01 | disposition home or self-care (01) | DRG 750 ==
LOC: EMS 18:57 → B3A 23:48
PROVIDERS: ADMIT Psychiatry & Neurology Psychiatry; ATTEND Psychiatry & Neurology Psychiatry
DX: F25.1 Schizoaffective disorder, depressive type (principal); N17.9 Acute kidney failure, unspecified; D72.829 Elevated white blood cell count, unspecified; F12.90 Cannabis use, unspecified, uncomplicated; F15.10 Other stimulant abuse, uncomplicated; F17.210 Nicotine dependence, cigarettes, uncomplicated; F41.9 Anxiety disorder, unspecified; F43.10 Post-traumatic stress disorder, unspecified; F60.0 Paranoid personality disorder; N18.9 Chronic kidney disease, unspecified; Z91.19 Patient's noncompliance with other medical treatment and regimen
CPT/HCPCS: 51702; 83036; 83605; 84439; 84443; 86592; 87040; 87081; 93005; G0480; J1200; J1630; J2060; J7030

== ENCOUNTER 2020-04-19 22:20 | Inpatient (IN) | payer MEDICAID, OTHER ==
[~2020-04-19] VITALS: Ht 188 cm; Wt 84.4 kg
[~2020-04-19 22:20] MED LIST changes: -BUPR-47 PO; -CEPH-582 PO; -CLIN300C3 PO; +FLUO-191 PO; +GABA-529 PO; +PALI117D IM; -RISP3 PO
[2020-04-19 23:04] LABS: AMPHET/METH SCREEN,URINE POSITIVE (NEGATIVE); BARBITURATE SCREEN, URINE NEGATIVE (NEGATIVE); BENZODIAZEPINES SCREEN,URINE NEGATIVE (NEGATIVE); CANNABINOID SCREEN,URINE POSITIVE (NEGATIVE); COCAINE SCREEN,URINE NEGATIVE (NEGATIVE); METHADONE SCREEN, URINE NEGATIVE (NEGATIVE); OPIATE SCREEN,URINE NEGATIVE (NEGATIVE); PHENCYCLIDINE SCREEN,URINE NEGATIVE (NEGATIVE)
[2020-04-19 23:17] LABS: BASOPHILS % (AUTO) 0.3 % (0.0-2.0); EOSINOPHILS % (AUTO) 0.1 % (1.0-6.0); HEMOGLOBIN 15.2 g/dL (13.5-17.5); LYMPHOCYTES # (AUTO) 1.7 K/uL (1.0-4.8); RED CELL DISTRIBUTION WIDTH 13.6 % (11.5-14.5)
[2020-04-19 23:20] LABS: HEMATOCRIT 43.8 % (41-53); LYMPHOCYTES % (AUTO) 14.9 % (22.0-44.0); MEAN CORPUSCULAR HEMOGLOBIN 31.2 pg (26.0-34.0); MEAN CORPUSCULAR HGB CONC 34.7 G/dL (31.0-37.0); MEAN CORPUSCULAR VOLUME 90 fL (80-100); MONOCYTES # (AUTO) 0.5 K/uL (0.1-1.0); MONOCYTES % (AUTO) 4.6 % (2.0-9.0); NEUTROPHILS % (AUTO) 80.1 % (40.0-70.0); PLATELET COUNT (AUTO) 166 K/uL (150-450); RED BLOOD CELL COUNT(AUTO) 4.87 MIL/uL (4.50-5.90)
[2020-04-19 23:22] LABS: ANION GAP 15 mmol/L (8-16); CALCIUM, TOTAL 10.3 mg/dL (8.8-10.5); CARBON DIOXIDE 24 mmol/L (22-29); CHLORIDE 98 mmol/L (98-107); CREATININE 1.44 mg/dL (0.60-1.30); GLOMERULAR FILTR. RATE CALC > 60 mL/min (>60); GLUCOSE,RANDOM 127 mg/dL (70-110); POTASSIUM 3.4 mmol/L (3.5-5.1); SODIUM SERUM 137 mmol/L (136-145); UREA NITROGEN, BLOOD 17 mg/dL (7-18)
[2020-04-19 23:27] LABS: ALANINE AMINOTRANSFERASE 28 U/L (12-78); ALBUMIN 5.1 g/dL (3.4-5.0); ALKALINE PHOSPHATASE 103 U/L (46-116); ASPARTATE AMINOTRANSFERASE 42 U/L (15-37); BILIRUBIN,TOTAL 1.1 mg/dL (0.1-1.0); TOTAL PROTEIN, SERUM 9.1 g/dL (6.4-8.2)
[2020-04-20] MEDS ORDERED: HALOPERIDOL 5 MG TABLET PO PRN (02:15)
[2020-04-20 02:41] LABS: APPEARANCE,URINE CLEAR (CLEAR); BILIRUBIN,URINE NEGATIVE (NEGATIVE); GLUCOSE, URINE (UA) NEGATIVE (NEGATIVE); KETONES,URINE 15 mg/dL (NEGATIVE); LEUKOCYTE ESTERASE ,URINE NEGATIVE (NEGATIVE); NITRATE,URINE NEGATIVE (NEGATIVE); OCCULT BLOOD,URINE TRACE (NEGATIVE); PROTEIN,URINE SEE CONFIRM (NEGATIVE)
[2020-04-20 02:53] LABS: SULFOSALICYLIC ACID,URINE 2+ (Negative)
[2020-04-20 02:54] LABS: BACTERIA,URINE Rare /HPF (None Seen); RBC,URINE 0-2 /HPF (0-2); SQUAMOUS EPITHELIAL CELL,UR Few /LPF (None Seen); WBC,URINE 0-2 /HPF (0-5); YEAST,URINE None Seen /HPF (None Seen)
[2020-04-20 04:41] VITALS: BP 136/72
[2020-04-20] MEDS ORDERED: IBUPROFEN 600 MG TABLET PO PRN (08:15)
[2020-04-20] MEDS ORDERED: ONDANSETRON HCL 4 MG TABLET PO PRN (08:15)
[2020-04-20] MEDS ORDERED: BACITRACIN 28.4 GM OINTMENT TP PRN (08:15)
[2020-04-20] MEDS ORDERED: DOCUSATE SODIUM 100 MG CAPSULE PO PRN (08:15)
[2020-04-20] MEDS ORDERED: BENZOCAINE/MENTHOL LOZENGE MM PRN (08:15)
[2020-04-20] MEDS ORDERED: LOPERAMIDE HCL 2 MG CAPSULE PO PRN (08:15)
[2020-04-20] MEDS ORDERED: MAGNESIUM HYDROXIDE SUSPENSION 30 ML UDCUP PO PRN (08:15)
[2020-04-20] MEDS ORDERED: ACETAMINOPHEN 325 MG TABLET PO PRN (08:15)
[2020-04-20] MEDS ORDERED: ALBUTEROL SULFATE HFA 90 MCG/PUFF 8 GM INHALER IH PRN (08:15)
[2020-04-20] MEDS ORDERED: POTASSIUM CHLORIDE 20 MEQ ER TABLET PO ONE (08:15)
[2020-04-20] MEDS ORDERED: OMEPRAZOLE 20 MG CAPSULE PO PRN (08:15)
[2020-04-20] MEDS ORDERED: PETROLATUM,WHITE 28 GM JELLY TP PRN (08:15)
[2020-04-20] MEDS ORDERED: CloNIDine HCL 0.1 MG TABLET PO PRN (08:15)
[2020-04-20] MEDS ORDERED: MAG HYDROX/AL HYDROX/SIMETH ES 30 ML SUSPENSION UDCUP PO PRN (08:15)
[2020-04-20 09:16] VITALS: BP 125/73
[2020-04-20] MEDS: LORazepam 2 MG TABLET PO PRN (12:53)
[2020-04-20 16:18] VITALS: BP 110/51
[2020-04-20] MEDS: RisperiDONE 2 MG TABLET PO SCH (21:47)
[2020-04-20] MEDS: FLUoxetine HCL 20 MG CAPSULE PO SCH (21:47)
[2020-04-21 06:04] VITALS: BP 115/77
[2020-04-21 08:30] LABS: CHOL/HDL RATIO 3.2 (4.2-7.3); POTASSIUM 3.8 mmol/L (3.5-5.1)
[2020-04-21] MEDS: FLUoxetine HCL 20 MG CAPSULE PO SCH (08:57)
[2020-04-21 09:12] VITALS: BP 105/65
[2020-04-21 16:10] VITALS: BP 111/67
[2020-04-21] MEDS: RisperiDONE 2 MG TABLET PO SCH (20:47)
[2020-04-21] MEDS: ZOLPIDEM TARTRATE 10 MG TABLET PO PRN (20:47)
[2020-04-22 08:14] VITALS: BP 101/65
[2020-04-22] MEDS: FLUoxetine HCL 20 MG CAPSULE PO SCH (08:21)
[2020-04-22 16:11] VITALS: BP 120/74
[2020-04-22] MEDS: RisperiDONE 2 MG TABLET PO SCH (20:21)
[2020-04-22] MEDS: ZOLPIDEM TARTRATE 10 MG TABLET PO PRN (20:21)
[2020-04-23 00:42] VITALS: BP 125/83
[2020-04-23 08:09] VITALS: BP 107/51
[2020-04-23] MEDS: FLUoxetine HCL 20 MG CAPSULE PO SCH (08:15)
[2020-04-23] MEDS: LORazepam 2 MG TABLET PO PRN (16:00)
[2020-04-23 16:18] VITALS: BP 115/76
[2020-04-23] MEDS: ZOLPIDEM TARTRATE 10 MG TABLET PO PRN (20:11)
[2020-04-23] MEDS: RisperiDONE 2 MG TABLET PO SCH (20:11)
[2020-04-24 05:48] VITALS: BP 126/82
[2020-04-24] MEDS: FLUoxetine HCL 20 MG CAPSULE PO SCH (08:04)
[2020-04-24 08:10] VITALS: BP 91/50
[2020-04-24] MEDS ORDERED: RISP2TAB23 PO (10:07)
[2020-04-24] MEDS ORDERED: FLUO-191 PO (10:07)
== END 2020-04-24 14:30 | disposition home or self-care (01) | DRG 750 ==
LOC: EMS 22:20 → B3A 04-20 02:09
PROVIDERS: ADMIT Psychiatry & Neurology Psychiatry; ATTEND Psychiatry & Neurology Psychiatry
DX: F25.1 Schizoaffective disorder, depressive type (principal); R45.851 Suicidal ideations; K75.9 Inflammatory liver disease, unspecified; Z59.0 Homelessness; F32.9 Major depressive disorder, single episode, unspecified; F43.10 Post-traumatic stress disorder, unspecified; G47.00 Insomnia, unspecified; K59.00 Constipation, unspecified; E87.6 Hypokalemia; Z79.899 Other long term (current) drug therapy; F19.10 Other psychoactive substance abuse, uncomplicated; F17.200 Nicotine dependence, unspecified, uncomplicated; Z91.5 Personal history of self-harm; F12.90 Cannabis use, unspecified, uncomplicated; Z88.0 Allergy status to penicillin; Z91.013 Allergy to seafood; Z88.8 Allergy status to other drugs, medicaments and biological substances
CPT/HCPCS: 84132; G0480

== ENCOUNTER 2020-06-21 00:05 | Inpatient (IN) | payer MEDICAID, OTHER ==
[~2020-06-21] VITALS: Ht 188 cm; Wt 86.9 kg
[~2020-06-21 00:05] MED LIST changes: -GABA-529 PO; -NALT50TA PO; -PALI117D IM; +RISP2TAB23 PO
[2020-06-21 01:15] LABS: BASOPHILS % (AUTO) 0.5 % (0.0-2.0); EOSINOPHILS % (AUTO) 0.1 % (1.0-6.0); HEMATOCRIT 44.6 % (41-53); HEMOGLOBIN 15.4 g/dL (13.5-17.5); LYMPHOCYTES % (AUTO) 15.3 % (22.0-44.0); MEAN CORPUSCULAR HEMOGLOBIN 31.3 pg (26.0-34.0); MEAN CORPUSCULAR HGB CONC 34.5 G/dL (31.0-37.0); MEAN CORPUSCULAR VOLUME 91 fL (80-100); MONOCYTES # (AUTO) 0.8 K/uL (0.1-1.0); MONOCYTES % (AUTO) 5.9 % (2.0-9.0); NEUTROPHILS % (AUTO) 78.2 % (40.0-70.0); PLATELET COUNT (AUTO) 175 K/uL (150-450); RED BLOOD CELL COUNT(AUTO) 4.91 MIL/uL (4.50-5.90); RED CELL DISTRIBUTION WIDTH 13.5 % (11.5-14.5)
[2020-06-21 01:22] LABS: ANION GAP 13 mmol/L (8-16); CARBON DIOXIDE 26 mmol/L (22-29); CHLORIDE 97 mmol/L (98-107); CREATININE 1.95 mg/dL (0.60-1.30); GLOMERULAR FILTR. RATE CALC 45 mL/min (>60); GLUCOSE,RANDOM 112 mg/dL (70-110); POTASSIUM 3.1 mmol/L (3.5-5.1); SODIUM SERUM 136 mmol/L (136-145); UREA NITROGEN, BLOOD 20 mg/dL (7-18)
[2020-06-21 01:29] LABS: ALANINE AMINOTRANSFERASE 37 U/L (12-78); ALKALINE PHOSPHATASE 100 U/L (46-116); ASPARTATE AMINOTRANSFERASE 65 U/L (15-37); BILIRUBIN,TOTAL 1.2 mg/dL (0.1-1.0); TOTAL PROTEIN, SERUM 9.7 g/dL (6.4-8.2)
[2020-06-21] MEDS ORDERED: LORazepam 1 MG TABLET PO ONE (01:45)
[2020-06-21] MEDS ORDERED: POTASSIUM CHLORIDE 20 MEQ ER TABLET PO ONE (02:30)
[2020-06-21] MEDS ORDERED: RisperiDONE 1 MG TABLET PO ONE (02:45)
[2020-06-21] MEDS ORDERED: ZOLPIDEM TARTRATE 10 MG TABLET PO PRN (03:00)
[2020-06-21 03:36] LABS: AMPHET/METH SCREEN,URINE POSITIVE (NEGATIVE); BARBITURATE SCREEN, URINE NEGATIVE (NEGATIVE); BENZODIAZEPINES SCREEN,URINE NEGATIVE (NEGATIVE); CANNABINOID SCREEN,URINE POSITIVE (NEGATIVE); COCAINE SCREEN,URINE NEGATIVE (NEGATIVE); METHADONE SCREEN, URINE NEGATIVE (NEGATIVE); OPIATE SCREEN,URINE NEGATIVE (NEGATIVE)
[2020-06-21 03:39] LABS: PHENCYCLIDINE SCREEN,URINE NEGATIVE (NEGATIVE)
[2020-06-21 04:20] LABS: APPEARANCE,URINE CLEAR (CLEAR); BILIRUBIN,URINE NEGATIVE (NEGATIVE); GLUCOSE, URINE (UA) NEGATIVE (NEGATIVE); KETONES,URINE 15 mg/dL (NEGATIVE); LEUKOCYTE ESTERASE ,URINE NEGATIVE (NEGATIVE); NITRATE,URINE NEGATIVE (NEGATIVE); OCCULT BLOOD,URINE NEGATIVE (NEGATIVE); PROTEIN,URINE SEE CONFIRM (NEGATIVE); UROBILINOGEN,URINE 0.2 mg/dL (<=1.0)
[2020-06-21 04:24] LABS: RBC,URINE 0-2 /HPF (0-2); SULFOSALICYLIC ACID,URINE 2+ (Negative)
[2020-06-21 04:25] LABS: BACTERIA,URINE Rare /HPF (None Seen); SQUAMOUS EPITHELIAL CELL,UR Few /LPF (None Seen); WBC,URINE 0-2 /HPF (0-5)
[2020-06-21 04:43] VITALS: BP 140/80
[2020-06-21] MEDS: LORazepam 2 MG TABLET PO PRN ×2 (04:48→21:31)
[2020-06-21] MEDS ORDERED: ONDANSETRON HCL 4 MG TABLET PO PRN (07:00)
[2020-06-21] MEDS ORDERED: IBUPROFEN 600 MG TABLET PO PRN (07:00)
[2020-06-21] MEDS ORDERED: DOCUSATE SODIUM 100 MG CAPSULE PO PRN (07:00)
[2020-06-21] MEDS ORDERED: BACITRACIN 28.4 GM OINTMENT TP PRN (07:00)
[2020-06-21] MEDS ORDERED: MAG HYDROX/AL HYDROX/SIMETH ES 30 ML SUSPENSION UDCUP PO PRN (07:00)
[2020-06-21] MEDS ORDERED: CloNIDine HCL 0.1 MG TABLET PO PRN (07:00)
[2020-06-21] MEDS ORDERED: OMEPRAZOLE 20 MG CAPSULE PO PRN (07:00)
[2020-06-21] MEDS ORDERED: PETROLATUM,WHITE 28 GM JELLY TP PRN (07:00)
[2020-06-21] MEDS ORDERED: LOPERAMIDE HCL 2 MG CAPSULE PO PRN (07:00)
[2020-06-21] MEDS ORDERED: BENZOCAINE/MENTHOL LOZENGE MM PRN (07:00)
[2020-06-21] MEDS ORDERED: MAGNESIUM HYDROXIDE SUSPENSION 30 ML UDCUP PO PRN (07:00)
[2020-06-21] MEDS ORDERED: ALBUTEROL SULFATE HFA 90 MCG/PUFF 8 GM INHALER IH PRN (07:00)
[2020-06-21] MEDS ORDERED: ACETAMINOPHEN 325 MG TABLET PO PRN (07:00)
[2020-06-21 08:14] LABS: HEMOGLOBIN A1C 5.9 % (3.8-5.6)
[2020-06-21 08:15] VITALS: BP 137/52
[2020-06-21 08:26] LABS: ANION GAP 10 mmol/L (8-16); CALCIUM, TOTAL 9.5 mg/dL (8.8-10.5); CARBON DIOXIDE 27 mmol/L (22-29); CHLORIDE 101 mmol/L (98-107); CHOL/HDL RATIO 2.7 (4.2-7.3); CHOLESTEROL 177 mg/dL (131-200); CREATININE 1.46 mg/dL (0.60-1.30); FREE T4 (FREE THYROXINE) 1.38 ng/dL (0.76-1.46); GLOMERULAR FILTR. RATE CALC > 60 mL/min (>60); GLUCOSE,RANDOM 97 mg/dL (70-110); HDL CHOLESTEROL 65 mg/dL (40-60); LDL CHOL (CALC.) 107 mg/dL (0-130); POTASSIUM 3.3 mmol/L (3.5-5.1); SODIUM SERUM 138 mmol/L (136-145); THYROID STIMULATING HORMONE 1.11 uIU/mL (0.36-3.74); TRIGLYCERIDES 24 mg/dL (15-150); UREA NITROGEN, BLOOD 21 mg/dL (7-18)
[2020-06-21] MEDS: BACITRACIN 28.4 GM OINTMENT TP SCH ×2 (09:00→13:42)
[2020-06-21 16:12] VITALS: BP 114/68
[2020-06-21] MEDS: HALOPERIDOL 5 MG TABLET PO PRN (21:31)
[2020-06-21] MEDS ORDERED: DiphenhydrAMINE HCL 50 MG/ML VIAL ONE (22:01)
[2020-06-21] MEDS ORDERED: LORazepam 2 MG/ML VIAL ONE (22:01)
[2020-06-21] MEDS ORDERED: HALOPERIDOL LACTATE 5 MG/ML VIAL ONE (22:02)
[2020-06-21] MEDS ORDERED: LORazepam 2 MG/ML VIAL IM ONE (22:15)
[2020-06-21] MEDS ORDERED: HALOPERIDOL LACTATE 5 MG/ML VIAL IM ONE (22:15)
[2020-06-21] MEDS ORDERED: DiphenhydrAMINE HCL 50 MG/ML VIAL IM ONE (22:15)
[2020-06-22 02:25] VITALS: BP 126/67
[2020-06-22 08:30] VITALS: BP 133/69
[2020-06-22] MEDS: BACITRACIN 28.4 GM OINTMENT TP SCH ×2 (08:50→16:53)
[2020-06-22] MEDS: MULTIVITAMINS WITH MINERALS, THERAPEUTIC TABLET PO SCH (08:50)
[2020-06-22] MEDS: FLUoxetine HCL 20 MG CAPSULE PO SCH (12:53)
[2020-06-22] MEDS: RisperiDONE 3 MG TABLET PO SCH (16:52)
[2020-06-22] MEDS: HALOPERIDOL 5 MG TABLET PO PRN (16:52)
[2020-06-22] MEDS: LORazepam 2 MG TABLET PO PRN (16:53)
[2020-06-23 06:10] VITALS: BP 107/71
[2020-06-23 08:16] LABS: ANION GAP 7 mmol/L (8-16); CALCIUM, TOTAL 9.2 mg/dL (8.8-10.5); CARBON DIOXIDE 29 mmol/L (22-29); CHLORIDE 104 mmol/L (98-107); CHOL/HDL RATIO 3.1 (4.2-7.3); CHOLESTEROL 166 mg/dL (131-200); CREATININE 1.38 mg/dL (0.60-1.30); GLOMERULAR FILTR. RATE CALC > 60 mL/min (>60); GLUCOSE,RANDOM 125 mg/dL (70-110); HDL CHOLESTEROL 53 mg/dL (40-60); LDL CHOL (CALC.) 101 mg/dL (0-130); POTASSIUM 3.6 mmol/L (3.5-5.1); SODIUM SERUM 140 mmol/L (136-145); TRIGLYCERIDES 58 mg/dL (15-150); UREA NITROGEN, BLOOD 22 mg/dL (7-18)
[2020-06-23 08:50] VITALS: BP 111/76
[2020-06-23] MEDS: LORazepam 2 MG TABLET PO PRN (08:50)
[2020-06-23] MEDS: FLUoxetine HCL 20 MG CAPSULE PO SCH (08:50)
[2020-06-23] MEDS: MULTIVITAMINS WITH MINERALS, THERAPEUTIC TABLET PO SCH (08:50)
[2020-06-23] MEDS: RisperiDONE 3 MG TABLET PO SCH ×2 (08:50→17:04)
[2020-06-23] MEDS: BACITRACIN 28.4 GM OINTMENT TP SCH ×2 (08:51→17:04)
[2020-06-23] MEDS ORDERED: RISP3TAB44 PO (14:43)
== END 2020-06-23 18:50 | disposition home or self-care (01) | DRG 885 ==
LOC: EMS 00:05 → B3A 02:50
PROVIDERS: ADMIT Psychiatry & Neurology Psychiatry; ATTEND Psychiatry & Neurology Psychiatry
DX: F25.1 Schizoaffective disorder, depressive type (principal); N17.9 Acute kidney failure, unspecified; R45.851 Suicidal ideations; E87.6 Hypokalemia; F15.10 Other stimulant abuse, uncomplicated; F43.10 Post-traumatic stress disorder, unspecified; G47.00 Insomnia, unspecified; K59.00 Constipation, unspecified; Z87.891 Personal history of nicotine dependence; F32.9 Major depressive disorder, single episode, unspecified
CPT/HCPCS: 80074; 83036; 84439; 84443; G0480; J1200; J1630; J2060

== ENCOUNTER 2021-11-21 06:26 | Emergency (ER) | payer OTHER ==
[~2021-11-21] VITALS: Ht 188 cm; Wt 100.0 kg
[~2021-11-21 06:26] MED LIST changes: -RISP2TAB23 PO; +RISP3TAB44 PO
[2021-11-21 06:28] VITALS: BP 136/72
[2021-11-21 06:45] LABS: COVID AG,FIA SOURCE NASOPHARYNGEAL
== END 2021-11-21 07:54 | disposition home or self-care (01) ==
LOC: EMS 06:26
DX: R09.81 Nasal congestion (principal); F41.9 Anxiety disorder, unspecified; F32.9 Major depressive disorder, single episode, unspecified; F20.9 Schizophrenia, unspecified; Z20.822 Contact with and (suspected) exposure to COVID-19
CPT/HCPCS: 99283

== ENCOUNTER 2022-03-29 22:31 | Inpatient (IN) | payer OTHER ==
[~2022-03-29] VITALS: Ht 188 cm; Wt 92.0 kg
[~2022-03-29 22:31] MED LIST changes: +FLUO-177 PO; -FLUO-191 PO
[2022-03-30 02:14] LABS: BASOPHILS % (AUTO) 0.2 % (0.0-2.0); EOSINOPHILS % (AUTO) 0.2 % (1.0-6.0); LYMPHOCYTES # (AUTO) 1.9 K/uL (1.0-4.8); LYMPHOCYTES % (AUTO) 11.6 % (22.0-44.0); MEAN CORPUSCULAR HEMOGLOBIN 31.4 pg (26.0-34.0); MEAN CORPUSCULAR HGB CONC 33.9 G/dL (31.0-37.0); MEAN CORPUSCULAR VOLUME 93 fL (80-100); MONOCYTES % (AUTO) 6.1 % (2.0-9.0); NEUTROPHILS # (AUTO) 13.5 K/uL (1.8-7.7); NEUTROPHILS % (AUTO) 81.9 % (40.0-70.0); PLATELET COUNT (AUTO) 208 K/uL (150-450); RED BLOOD CELL COUNT(AUTO) 6.38 MIL/uL (4.50-5.90); RED CELL DISTRIBUTION WIDTH 13.7 % (11.5-14.5)
[2022-03-30 02:21] LABS: HEMATOCRIT 58.9 % (41-53)
[2022-03-30 02:23] LABS: ANION GAP 11 mmol/L (8-16); CALCIUM, TOTAL 9.3 mg/dL (8.8-10.5); CARBON DIOXIDE 27 mmol/L (22-29); CHLORIDE 99 mmol/L (98-107); CREATININE 1.48 mg/dL (0.60-1.30); GLUCOSE,RANDOM 164 mg/dL (70-110); POTASSIUM 3.5 mmol/L (3.5-5.1); SODIUM SERUM 137 mmol/L (136-145); UREA NITROGEN, BLOOD 24 mg/dL (7-18)
[2022-03-30 02:24] LABS: GLOMERULAR FILTR. RATE CALC > 60 mL/min (>60)
[2022-03-30] MEDS ORDERED: HALOPERIDOL 5 MG TABLET PO ONE (02:30)
[2022-03-30] MEDS ORDERED: LORazepam 1 MG TABLET PO ONE (02:30)
[2022-03-30 02:42] LABS: ALANINE AMINOTRANSFERASE 57 U/L (12-78); ALBUMIN 4.2 g/dL (3.4-5.0); ALKALINE PHOSPHATASE 124 U/L (46-116); ASPARTATE AMINOTRANSFERASE 123 U/L (15-37); BILIRUBIN,TOTAL 1.2 mg/dL (0.1-1.0); CREATINE KINASE, TOTAL ONLY 2376 U/L (39-308)
[2022-03-30] MEDS ORDERED: SODIUM CHLORIDE 0.9% 250 ML IV ONE (04:30)
[2022-03-30] MEDS ORDERED: SODIUM CHLORIDE 0.9% 2,000 ML IV ONE (04:30)
[2022-03-30] MEDS ORDERED: ONDANSETRON HCL 4 MG/2 ML VIAL IVP PRN ×2 (04:45→05:30)
[2022-03-30] MEDS ORDERED: 0.9% SODIUM CHLORIDE 10 ML SYRINGE IVP PRN (04:45)
[2022-03-30] MEDS ORDERED: ACETAMINOPHEN 325 MG TABLET PO PRN ×2 (04:45→05:30)
[2022-03-30 05:57] LABS: COVID AG,FIA SOURCE NASAL SWAB
[2022-03-30] MEDS: RINGERS SOLUTION,LACTATED 1,000 ML IV SCH ×2 (07:16→14:45)
[2022-03-30] MEDS: HEPARIN SODIUM,PORCINE 5,000 UNITS/ML VIAL SQ SCH ×3 (08:16→23:30)
[2022-03-30 16:04] LABS: APPEARANCE,URINE CLEAR (CLEAR); BILIRUBIN,URINE NEGATIVE (NEGATIVE); GLUCOSE, URINE (UA) NEGATIVE (NEGATIVE); KETONES,URINE 40-60 mg/dL (NEGATIVE); LEUKOCYTE ESTERASE ,URINE NEGATIVE (NEGATIVE); NITRATE,URINE NEGATIVE (NEGATIVE); OCCULT BLOOD,URINE MODERATE (NEGATIVE); PROTEIN,URINE 300-600,SEE CONFIRM mg/dL (NEGATIVE); SPECIFIC GRAVITIY, URINE 1.034 (1.003-1.030)
[2022-03-30 16:11] LABS: AMPHET/METH SCREEN,URINE POSITIVE (NEGATIVE); BARBITURATE SCREEN, URINE NEGATIVE (NEGATIVE); BENZODIAZEPINES SCREEN,URINE NEGATIVE (NEGATIVE); CANNABINOID SCREEN,URINE NEGATIVE (NEGATIVE); COCAINE SCREEN,URINE NEGATIVE (NEGATIVE); METHADONE SCREEN, URINE NEGATIVE (NEGATIVE); OPIATE SCREEN,URINE NEGATIVE (NEGATIVE)
[2022-03-30 16:12] LABS: PHENCYCLIDINE SCREEN,URINE NEGATIVE (NEGATIVE)
[2022-03-30 16:19] LABS: CREATININE,URINE RANDOM 399.3 mg/dL (30.0-125.0)
[2022-03-30 16:54] LABS: SULFOSALICYLIC ACID,URINE 4+ (Negative)
[2022-03-30 16:57] LABS: RBC,URINE 0-2 /HPF (0-2); WBC,URINE 0-2 /HPF (0-5)
[2022-03-30 16:58] LABS: BACTERIA,URINE Rare /HPF (None Seen)
[2022-03-30 21:01] VITALS: BP 121/53
[2022-03-31] MEDS: RINGERS SOLUTION,LACTATED 1,000 ML IV SCH (03:46)
[2022-03-31 04:22] VITALS: BP 110/60
[2022-03-31] MEDS: HEPARIN SODIUM,PORCINE 5,000 UNITS/ML VIAL SQ SCH ×3 (08:00→23:59)
[2022-03-31 15:40] LABS: BASOPHILS % (AUTO) 0.3 % (0.0-2.0); EOSINOPHILS % (AUTO) 0.8 % (1.0-6.0); HEMATOCRIT 48.5 % (41-53); HEMOGLOBIN 16.6 g/dL (13.5-17.5); LYMPHOCYTES # (AUTO) 1.5 K/uL (1.0-4.8); LYMPHOCYTES % (AUTO) 14.8 % (22.0-44.0); MEAN CORPUSCULAR HEMOGLOBIN 31.3 pg (26.0-34.0); MEAN CORPUSCULAR HGB CONC 34.3 G/dL (31.0-37.0); MEAN CORPUSCULAR VOLUME 91 fL (80-100); MONOCYTES # (AUTO) 0.5 K/uL (0.1-1.0); MONOCYTES % (AUTO) 5.2 % (2.0-9.0); NEUTROPHILS # (AUTO) 8.1 K/uL (1.8-7.7); NEUTROPHILS % (AUTO) 78.9 % (40.0-70.0); PLATELET COUNT (AUTO) 158 K/uL (150-450); RED BLOOD CELL COUNT(AUTO) 5.31 MIL/uL (4.50-5.90); RED CELL DISTRIBUTION WIDTH 13.3 % (11.5-14.5)
[2022-03-31 15:46] VITALS: BP 126/78
[2022-03-31 16:03] LABS: ANION GAP 4 mmol/L (8-16); CALCIUM, TOTAL 8.2 mg/dL (8.8-10.5); CARBON DIOXIDE 28 mmol/L (22-29); CHLORIDE 105 mmol/L (98-107); CREATININE 0.98 mg/dL (0.60-1.30); GLOMERULAR FILTR. RATE CALC > 60 mL/min (>60); GLUCOSE,RANDOM 116 mg/dL (70-110); POTASSIUM 3.3 mmol/L (3.5-5.1); SODIUM SERUM 137 mmol/L (136-145); UREA NITROGEN, BLOOD 14 mg/dL (7-18)
[2022-03-31] MEDS ORDERED: MAGNESIUM SULFATE 2 GM/WATER 50 ML IV PRN (19:45)
[2022-03-31] MEDS ORDERED: POTASSIUM CHL 10 MEQ/WATER 50 ML IV PRN (19:45)
[2022-03-31] MEDS ORDERED: MAGNESIUM SULFATE 4 GM/WATER 100 ML IV PRN (19:45)
[2022-03-31] MEDS ORDERED: POTASSIUM CHLORIDE 20 MEQ ER TABLET PO PRN (19:45)
[2022-03-31] MEDS: MAGNESIUM OXIDE 400 MG TABLET PO PRN ×2 (20:06→23:59)
[2022-03-31 20:12] VITALS: BP 124/77
[2022-03-31 23:08] LABS: ALBUMIN 3.2 g/dL (3.4-5.0)
[2022-04-01 04:50] VITALS: BP 141/89
[2022-04-01] MEDS: MAGNESIUM OXIDE 400 MG TABLET PO PRN (05:11)
[2022-04-01] MEDS: HEPARIN SODIUM,PORCINE 5,000 UNITS/ML VIAL SQ SCH (08:00)
[2022-04-01 08:16] VITALS: BP 119/76
== END 2022-04-01 10:26 | disposition left against medical advice (07) | DRG 469 ==
LOC: EMS 23:02 → 6N 03-30 19:48
PROVIDERS: ADMIT Internal Medicine; ATTEND Internal Medicine
DX: N17.9 Acute kidney failure, unspecified (principal); R65.11 Systemic inflammatory response syndrome (SIRS) of non-infectious origin with acute organ dysfunction; M62.82 Rhabdomyolysis; F25.1 Schizoaffective disorder, depressive type; K75.9 Inflammatory liver disease, unspecified; D75.1 Secondary polycythemia; E86.0 Dehydration; F15.10 Other stimulant abuse, uncomplicated; F43.10 Post-traumatic stress disorder, unspecified; Z20.822 Contact with and (suspected) exposure to COVID-19; F12.90 Cannabis use, unspecified, uncomplicated; F41.9 Anxiety disorder, unspecified; Z59.02 Unsheltered homelessness; Z87.891 Personal history of nicotine dependence; Z88.0 Allergy status to penicillin; Z91.013 Allergy to seafood; Z91.018 Allergy to other foods; F19.10 Other psychoactive substance abuse, uncomplicated
CPT/HCPCS: 80048; 80053; 81001; 81002; 82040; 82550; 82570; 83735; 84300; 85025; 87040; 87081; 99285; G0480; J1644; J7030; J7040; J7120

== ENCOUNTER 2022-04-01 17:38 | Inpatient (IN) | payer MEDICAID ==
[~2022-04-01] VITALS: Ht 188 cm; Wt 94.8 kg
[2022-04-01] MEDS ORDERED: HALOPERIDOL 5 MG TABLET PO PRN (19:30)
[2022-04-01] MEDS ORDERED: LORazepam 2 MG TABLET PO PRN (19:30)
[2022-04-01] MEDS ORDERED: ZOLPIDEM TARTRATE 10 MG TABLET PO PRN (19:30)
[2022-04-01] MEDS ORDERED: PNEUMOCOCCAL VACCINE POLYVALENT 0.5 ML VIAL [PPSV23] IM. ONE (20:15)
[2022-04-01 20:23] VITALS: BP 140/87
[2022-04-02 07:18] LABS: BASOPHILS % (AUTO) 0.3 % (0.0-2.0); EOSINOPHILS % (AUTO) 0.9 % (1.0-6.0); HEMATOCRIT 48.6 % (41-53); LYMPHOCYTES # (AUTO) 1.9 K/uL (1.0-4.8); LYMPHOCYTES % (AUTO) 20.4 % (22.0-44.0); MEAN CORPUSCULAR HEMOGLOBIN 31.8 pg (26.0-34.0); MEAN CORPUSCULAR HGB CONC 34.9 G/dL (31.0-37.0); MEAN CORPUSCULAR VOLUME 91 fL (80-100); MONOCYTES # (AUTO) 0.6 K/uL (0.1-1.0); MONOCYTES % (AUTO) 6.7 % (2.0-9.0); NEUTROPHILS # (AUTO) 6.8 K/uL (1.8-7.7); NEUTROPHILS % (AUTO) 71.7 % (40.0-70.0); PLATELET COUNT (AUTO) 170 K/uL (150-450); RED BLOOD CELL COUNT(AUTO) 5.32 MIL/uL (4.50-5.90); RED CELL DISTRIBUTION WIDTH 13.7 % (11.5-14.5)
[2022-04-02 07:21] LABS: HEMOGLOBIN A1C 5.8 % (3.8-5.6)
[2022-04-02 07:34] LABS: ALANINE AMINOTRANSFERASE 40 U/L (12-78); ALBUMIN 3.2 g/dL (3.4-5.0); ALKALINE PHOSPHATASE 97 U/L (46-116); ANION GAP 9 mmol/L (8-16); ASPARTATE AMINOTRANSFERASE 37 U/L (15-37); BILIRUBIN,TOTAL 0.7 mg/dL (0.1-1.0); CALCIUM, TOTAL 8.4 mg/dL (8.8-10.5); CARBON DIOXIDE 28 mmol/L (22-29); CHLORIDE 103 mmol/L (98-107); CHOL/HDL RATIO 4.5 (4.2-7.3); CHOLESTEROL 156 mg/dL (131-200); GLOMERULAR FILTR. RATE CALC > 60 mL/min (>60); GLUCOSE,RANDOM 97 mg/dL (70-110); HDL CHOLESTEROL 35 mg/dL (40-60); LDL CHOL (CALC.) 105 mg/dL (0-130); POTASSIUM 3.7 mmol/L (3.5-5.1); SODIUM SERUM 140 mmol/L (136-145); THYROID STIMULATING HORMONE 0.58 uIU/mL (0.36-3.74); TOTAL PROTEIN, SERUM 6.9 g/dL (6.4-8.2); TRIGLYCERIDES 81 mg/dL (15-150); UREA NITROGEN, BLOOD 14 mg/dL (7-18)
[2022-04-02 08:40] VITALS: BP 108/66
[2022-04-02 09:06] LABS: GLUCOMETER DEV NAME(LOC) POC.BV
[2022-04-02 09:12] LABS: GLUCOMETER DEV NAME(LOC) POC.BV
[2022-04-02 16:27] VITALS: BP 112/66
[2022-04-02] MEDS ORDERED: OMEPRAZOLE 20 MG CAPSULE PO PRN (17:00)
[2022-04-02] MEDS ORDERED: MAGNESIUM HYDROXIDE SUSPENSION 30 ML UDCUP PO PRN (17:00)
[2022-04-02] MEDS ORDERED: MAG HYDROX/AL HYDROX/SIMETH ES 30 ML SUSPENSION UDCUP PO PRN (17:00)
[2022-04-02] MEDS ORDERED: ACETAMINOPHEN 325 MG TABLET PO PRN (17:00)
[2022-04-02] MEDS ORDERED: DOCUSATE SODIUM 100 MG CAPSULE PO PRN (17:00)
[2022-04-02] MEDS ORDERED: ONDANSETRON HCL 4 MG TABLET PO PRN (17:00)
[2022-04-02] MEDS ORDERED: BENZOCAINE/MENTHOL LOZENGE PO PRN (17:00)
[2022-04-02] MEDS ORDERED: PETROLATUM,WHITE 28 GM JELLY TP PRN (17:00)
[2022-04-02] MEDS ORDERED: LOPERAMIDE HCL 2 MG CAPSULE PO PRN (17:00)
[2022-04-02] MEDS ORDERED: ALBUTEROL SULFATE HFA 90 MCG/PUFF 8 GM INHALER IH PRN (17:00)
[2022-04-02] MEDS ORDERED: BACITRACIN 28 GM OINTMENT TP PRN (17:00)
[2022-04-02] MEDS ORDERED: CloNIDine HCL 0.1 MG TABLET PO PRN (17:00)
[2022-04-02] MEDS ORDERED: IBUPROFEN 600 MG TABLET PO PRN (17:00)
[2022-04-03 04:34] VITALS: BP 124/80
[2022-04-03 08:45] VITALS: BP 67/120
[2022-04-03 16:25] VITALS: BP 103/61
[2022-04-04 05:03] VITALS: BP 111/68
[2022-04-04 08:30] VITALS: BP 112/65
[2022-04-04] MEDS ORDERED: RisperiDONE 3 MG TABLET PO ONE (11:30)
[2022-04-04 16:29] VITALS: BP 116/62
[2022-04-04] MEDS: RisperiDONE 3 MG TABLET PO SCH (17:18)
[2022-04-05 04:18] VITALS: BP 98/63
[2022-04-05 08:33] VITALS: BP 106/67
[2022-04-05] MEDS: RisperiDONE 3 MG TABLET PO SCH ×2 (08:42→17:06)
[2022-04-05 16:21] VITALS: BP 140/92
[2022-04-06 06:00] VITALS: BP 107/70
[2022-04-06 08:26] VITALS: BP 120/69
[2022-04-06] MEDS: RisperiDONE 3 MG TABLET PO SCH ×2 (08:46→16:33)
[2022-04-06 16:26] VITALS: BP 140/95
[2022-04-07 05:09] VITALS: BP 99/61
[2022-04-07] MEDS: RisperiDONE 3 MG TABLET PO SCH ×2 (08:43→17:00)
[2022-04-07 08:59] VITALS: BP 125/67
[2022-04-07 16:29] VITALS: BP 106/68
[2022-04-08 05:04] VITALS: BP 103/65
[2022-04-08 08:40] VITALS: BP 110/63
[2022-04-08] MEDS: RisperiDONE 3 MG TABLET PO SCH ×2 (08:44→16:10)
[2022-04-08 16:04] VITALS: BP 113/73
[2022-04-09 04:58] VITALS: BP 105/62
[2022-04-09 08:44] VITALS: BP 118/79
[2022-04-09] MEDS: RisperiDONE 3 MG TABLET PO SCH ×2 (09:00→16:28)
[2022-04-09 16:19] VITALS: BP 119/79
[2022-04-10 04:11] VITALS: BP 99/58
[2022-04-10 08:21] VITALS: BP 104/59
[2022-04-10] MEDS: RisperiDONE 3 MG TABLET PO SCH (08:40)
[2022-04-10] MEDS ORDERED: RISP3TAB35 PO (11:08)
== END 2022-04-10 12:12 | disposition home or self-care (01) | DRG 750 ==
LOC: B3A 18:29
PROVIDERS: ADMIT Psychiatry & Neurology Psychiatry; ATTEND Psychiatry & Neurology Psychiatry
DX: F20.9 Schizophrenia, unspecified (principal); F19.10 Other psychoactive substance abuse, uncomplicated; F41.9 Anxiety disorder, unspecified; G47.00 Insomnia, unspecified; K59.00 Constipation, unspecified; Z72.0 Tobacco use; Z71.6 Tobacco abuse counseling
CPT/HCPCS: 80053; 80061; 83036; 84439; 84443; 85025; 87081

== ENCOUNTER 2022-04-19 12:18 | Inpatient (IN) | payer MEDICAID ==
[~2022-04-19] VITALS: Ht 188 cm; Wt 92.1 kg
[~2022-04-19 12:18] MED LIST changes: -FLUO-177 PO; +RISP3TAB35 PO; -RISP3TAB44 PO
[2022-04-20 17:30] VITALS: BP 131/89
[2022-04-20] MEDS ORDERED: LORazepam 2 MG TABLET PO PRN (17:45)
[2022-04-20] MEDS ORDERED: HALOPERIDOL 5 MG TABLET PO PRN (17:45)
[2022-04-20] MEDS ORDERED: ONDANSETRON HCL 4 MG TABLET PO PRN (20:15)
[2022-04-20] MEDS ORDERED: MAG HYDROX/AL HYDROX/SIMETH ES 30 ML SUSPENSION UDCUP PO PRN (20:15)
[2022-04-20] MEDS ORDERED: BACITRACIN 28 GM OINTMENT TP PRN (20:15)
[2022-04-20] MEDS ORDERED: ALBUTEROL SULFATE HFA 90 MCG/PUFF 8 GM INHALER IH PRN (20:15)
[2022-04-20] MEDS ORDERED: CloNIDine HCL 0.1 MG TABLET PO PRN (20:15)
[2022-04-20] MEDS ORDERED: LOPERAMIDE HCL 2 MG CAPSULE PO PRN (20:15)
[2022-04-20] MEDS ORDERED: DOCUSATE SODIUM 100 MG CAPSULE PO PRN (20:15)
[2022-04-20] MEDS ORDERED: BENZOCAINE/MENTHOL LOZENGE PO PRN (20:15)
[2022-04-20] MEDS ORDERED: MAGNESIUM HYDROXIDE SUSPENSION 30 ML UDCUP PO PRN (20:15)
[2022-04-20] MEDS ORDERED: OMEPRAZOLE 20 MG CAPSULE PO PRN (20:15)
[2022-04-20] MEDS ORDERED: PETROLATUM,WHITE 28 GM JELLY TP PRN (20:15)
[2022-04-20] MEDS ORDERED: IBUPROFEN 600 MG TABLET PO PRN (20:15)
[2022-04-20] MEDS ORDERED: ACETAMINOPHEN 325 MG TABLET PO PRN (20:15)
[2022-04-20] MEDS: RisperiDONE 2 MG TABLET PO SCH (21:23)
[2022-04-20] MEDS: CLINDAMYCIN HCL 300 MG CAPSULE PO SCH (21:23)
[2022-04-20] MEDS: DOXYCYCLINE HYCLATE 100 MG TABLET PO SCH (21:23)
[2022-04-20] MEDS: ZOLPIDEM TARTRATE 10 MG TABLET PO PRN (21:29)
[2022-04-21 06:20] LABS: BASOPHILS % (AUTO) 0.5 % (0.0-2.0); EOSINOPHILS % (AUTO) 2.8 % (1.0-6.0); HEMATOCRIT 43.8 % (41-53); HEMOGLOBIN 15.1 g/dL (13.5-17.5); LYMPHOCYTES # (AUTO) 1.6 K/uL (1.0-4.8); MEAN CORPUSCULAR HEMOGLOBIN 31.3 pg (26.0-34.0); MEAN CORPUSCULAR HGB CONC 34.5 G/dL (31.0-37.0); MEAN CORPUSCULAR VOLUME 91 fL (80-100); MONOCYTES # (AUTO) 0.4 K/uL (0.1-1.0); MONOCYTES % (AUTO) 5.9 % (2.0-9.0); NEUTROPHILS # (AUTO) 4.8 K/uL (1.8-7.7); NEUTROPHILS % (AUTO) 67.8 % (40.0-70.0); PLATELET COUNT (AUTO) 184 K/uL (150-450); RED BLOOD CELL COUNT(AUTO) 4.83 MIL/uL (4.50-5.90); RED CELL DISTRIBUTION WIDTH 13.4 % (11.5-14.5)
[2022-04-21 06:56] LABS: ANION GAP 7 mmol/L (8-16); CARBON DIOXIDE 27 mmol/L (22-29); CHLORIDE 103 mmol/L (98-107); CREATININE 0.99 mg/dL (0.60-1.30); GLUCOSE,RANDOM 109 mg/dL (70-110); POTASSIUM 4.2 mmol/L (3.5-5.1); SODIUM SERUM 137 mmol/L (136-145); UREA NITROGEN, BLOOD 12 mg/dL (7-18)
[2022-04-21 06:57] LABS: ALANINE AMINOTRANSFERASE 36 U/L (12-78); ALBUMIN 2.9 g/dL (3.4-5.0); ALKALINE PHOSPHATASE 89 U/L (46-116); ASPARTATE AMINOTRANSFERASE 33 U/L (15-37); BILIRUBIN,TOTAL 0.4 mg/dL (0.1-1.0); CALCIUM, TOTAL 8.9 mg/dL (8.8-10.5); CHOLESTEROL 149 mg/dL (131-200); CREATINE KINASE, TOTAL ONLY 298 U/L (39-308); FREE T4 (FREE THYROXINE) 1.04 ng/dL (0.76-1.46); GLOMERULAR FILTR. RATE CALC > 60 mL/min (>60); HDL CHOLESTEROL 37 mg/dL (40-60); LDL CHOL (CALC.) 99 mg/dL (0-130); THYROID STIMULATING HORMONE 0.96 uIU/mL (0.36-3.74); TOTAL PROTEIN, SERUM 6.8 g/dL (6.4-8.2); TRIGLYCERIDES 67 mg/dL (15-150)
[2022-04-21] MEDS ORDERED: ONDANSETRON HCL 4 MG TABLET PO PRN (08:45)
[2022-04-21] MEDS ORDERED: PETROLATUM,WHITE 28 GM JELLY TP PRN (08:45)
[2022-04-21] MEDS ORDERED: ALBUTEROL SULFATE HFA 90 MCG/PUFF 8 GM INHALER IH PRN (08:45)
[2022-04-21] MEDS ORDERED: LOPERAMIDE HCL 2 MG CAPSULE PO PRN (08:45)
[2022-04-21] MEDS ORDERED: NICOTINE 14 MG/24 HOUR PATCH TD PRN (08:45)
[2022-04-21] MEDS ORDERED: MAG HYDROX/AL HYDROX/SIMETH ES 30 ML SUSPENSION UDCUP PO PRN (08:45)
[2022-04-21] MEDS ORDERED: MAGNESIUM HYDROXIDE SUSPENSION 30 ML UDCUP PO PRN (08:45)
[2022-04-21] MEDS ORDERED: IBUPROFEN 400 MG TABLET PO PRN (08:45)
[2022-04-21] MEDS ORDERED: CloNIDine HCL 0.1 MG TABLET PO PRN (08:45)
[2022-04-21] MEDS ORDERED: DOCUSATE SODIUM 100 MG CAPSULE PO PRN (08:45)
[2022-04-21] MEDS ORDERED: GuaiFENesin/D-METHORPHAN [SUGAR-FREE] 200-20MG/10 ML SYRUP UDCUP PO PRN (08:45)
[2022-04-21] MEDS ORDERED: ACETAMINOPHEN 325 MG TABLET PO PRN (08:45)
[2022-04-21] MEDS ORDERED: NICOTINE 21 MG/24 HOUR PATCH TD SCH (09:00)
[2022-04-21] MEDS: DOXYCYCLINE HYCLATE 100 MG TABLET PO SCH ×2 (10:47→17:02)
[2022-04-21] MEDS: CLINDAMYCIN HCL 300 MG CAPSULE PO SCH ×3 (10:47→17:02)
[2022-04-21] MEDS: RisperiDONE 2 MG TABLET PO SCH ×2 (10:47→20:11)
[2022-04-21 16:18] VITALS: BP 106/64
[2022-04-21] MEDS: ZOLPIDEM TARTRATE 10 MG TABLET PO PRN (20:11)
[2022-04-22] MEDS: CLINDAMYCIN HCL 300 MG CAPSULE PO SCH ×3 (07:59→16:15)
[2022-04-22] MEDS: DOXYCYCLINE HYCLATE 100 MG TABLET PO SCH ×2 (07:59→16:15)
[2022-04-22] MEDS: RisperiDONE 2 MG TABLET PO SCH ×2 (07:59→20:03)
[2022-04-22 08:00] VITALS: BP 101/69
[2022-04-22 16:36] VITALS: BP 105/65
[2022-04-22 16:39] LABS: COVID AG,FIA SOURCE NASAL SWAB
[2022-04-22] MEDS: ZOLPIDEM TARTRATE 10 MG TABLET PO PRN (20:03)
[2022-04-23] MEDS: CLINDAMYCIN HCL 300 MG CAPSULE PO SCH ×2 (08:18→12:35)
[2022-04-23] MEDS: RisperiDONE 2 MG TABLET PO SCH (08:18)
[2022-04-23] MEDS: DOXYCYCLINE HYCLATE 100 MG TABLET PO SCH (08:18)
[2022-04-23 09:00] VITALS: BP 98/62
[2022-04-23] MEDS ORDERED: RISP2TAB86 PO (13:06)
[2022-04-23] MEDS ORDERED: DOXY-354 PO (14:05)
[2022-04-23] MEDS ORDERED: CLIN300C58 PO (14:05)
== END 2022-04-23 14:20 | disposition home or self-care (01) | DRG 750 ==
LOC: 3EC 04-20 17:30
PROVIDERS: ADMIT Psychiatry & Neurology Psychiatry; ATTEND Psychiatry & Neurology Psychiatry
DX: F25.0 Schizoaffective disorder, bipolar type (principal); F22 Delusional disorders; F17.200 Nicotine dependence, unspecified, uncomplicated; G47.00 Insomnia, unspecified; F19.10 Other psychoactive substance abuse, uncomplicated; Z20.822 Contact with and (suspected) exposure to COVID-19; F10.10 Alcohol abuse, uncomplicated; T14.8XXA Other injury of unspecified body region, initial encounter; F41.9 Anxiety disorder, unspecified; K59.00 Constipation, unspecified; Z91.19 Patient's noncompliance with other medical treatment and regimen; Z79.899 Other long term (current) drug therapy; Z88.0 Allergy status to penicillin; Z91.013 Allergy to seafood; Z91.018 Allergy to other foods; Z71.6 Tobacco abuse counseling; Z71.41 Alcohol abuse counseling and surveillance of alcoholic; Z71.51 Drug abuse counseling and surveillance of drug abuser; Y93.89 Activity, other specified; Y92.89 Other specified places as the place of occurrence of the external cause; Y99.8 Other external cause status
CPT/HCPCS: 80053; 80061; 82550; 84436; 84439; 84443; 85025; 87081

== ENCOUNTER 2022-04-29 20:52 | Emergency (ER) | payer MEDICAID, OTHER ==
[~2022-04-29] VITALS: Ht 188 cm; Wt 86.4 kg
[~2022-04-29 20:52] MED LIST changes: +CLIN300C58 PO; +DOXY-354 PO; +RISP2TAB86 PO; -RISP3TAB35 PO
[2022-04-29 21:06] VITALS: BP 151/97
== END 2022-04-30 02:11 | disposition left against medical advice (07) ==
LOC: EMS 20:52
DX: Z53.21 Procedure and treatment not carried out due to patient leaving prior to being seen by health care provider (principal)

== ENCOUNTER 2022-04-30 23:30 | Emergency (ER) | payer OTHER ==
[~2022-04-30] VITALS: Ht 188 cm; Wt 86.0 kg
[2022-05-01 00:31] LABS: BASOPHILS % (AUTO) 0.5 % (0.0-2.0); EOSINOPHILS % (AUTO) 0.4 % (1.0-6.0); HEMATOCRIT 46.1 % (41-53); LYMPHOCYTES % (AUTO) 14.4 % (22.0-44.0); MEAN CORPUSCULAR HEMOGLOBIN 31.1 pg (26.0-34.0); MEAN CORPUSCULAR HGB CONC 34.7 G/dL (31.0-37.0); MEAN CORPUSCULAR VOLUME 90 fL (80-100); MONOCYTES # (AUTO) 0.7 K/uL (0.1-1.0); MONOCYTES % (AUTO) 5.2 % (2.0-9.0); NEUTROPHILS # (AUTO) 11.2 K/uL (1.8-7.7); NEUTROPHILS % (AUTO) 79.5 % (40.0-70.0); PLATELET COUNT (AUTO) 202 K/uL (150-450); RED BLOOD CELL COUNT(AUTO) 5.15 MIL/uL (4.50-5.90); RED CELL DISTRIBUTION WIDTH 13.6 % (11.5-14.5)
[2022-05-01 00:38] LABS: ANION GAP 18 mmol/L (8-16); CALCIUM, TOTAL 9.5 mg/dL (8.8-10.5); CARBON DIOXIDE 20 mmol/L (22-29); CHLORIDE 99 mmol/L (98-107); CREATININE 1.29 mg/dL (0.60-1.30); GLUCOSE,RANDOM 135 mg/dL (70-110); POTASSIUM 3.1 mmol/L (3.5-5.1); SODIUM SERUM 137 mmol/L (136-145); UREA NITROGEN, BLOOD 14 mg/dL (7-18)
[2022-05-01 00:40] LABS: GLOMERULAR FILTR. RATE CALC > 60 mL/min (>60)
[2022-05-01 00:45] LABS: ALANINE AMINOTRANSFERASE 44 U/L (12-78); ALBUMIN 3.9 g/dL (3.4-5.0); ALKALINE PHOSPHATASE 106 U/L (46-116); ASPARTATE AMINOTRANSFERASE 63 U/L (15-37); BILIRUBIN,TOTAL 1.1 mg/dL (0.1-1.0); TOTAL PROTEIN, SERUM 7.8 g/dL (6.4-8.2)
[2022-05-01] MEDS ORDERED: LORazepam 1 MG TABLET PO ONE (00:45)
[2022-05-01 06:52] LABS: AMPHET/METH SCREEN,URINE POSITIVE (NEGATIVE); BARBITURATE SCREEN, URINE NEGATIVE (NEGATIVE); BENZODIAZEPINES SCREEN,URINE NEGATIVE (NEGATIVE); CANNABINOID SCREEN,URINE NEGATIVE (NEGATIVE); COCAINE SCREEN,URINE NEGATIVE (NEGATIVE); METHADONE SCREEN, URINE NEGATIVE (NEGATIVE); OPIATE SCREEN,URINE NEGATIVE (NEGATIVE)
[2022-05-01 07:15] LABS: PHENCYCLIDINE SCREEN,URINE NEGATIVE (NEGATIVE)
[2022-05-01 08:36] VITALS: BP 128/80
[2022-05-01 08:37] LABS: COVID AG,FIA SOURCE NASOPHARYNGEAL
[2022-05-01] MEDS ORDERED: POTASSIUM CHLORIDE 20 MEQ ER TABLET PO ONE (09:00)
== END 2022-05-01 10:00 | disposition home or self-care (01) ==
LOC: EMS 23:30
DX: F15.150 Other stimulant abuse with stimulant-induced psychotic disorder with delusions (principal); F32.9 Major depressive disorder, single episode, unspecified; F41.9 Anxiety disorder, unspecified; F12.90 Cannabis use, unspecified, uncomplicated; Z91.013 Allergy to seafood; Z91.018 Allergy to other foods; Z79.899 Other long term (current) drug therapy; Z20.822 Contact with and (suspected) exposure to COVID-19
CPT/HCPCS: 36415; 71046; 80053; 80307; 85025; 87426; 93005; 99285; G0480